=== PATIENT | male | born 1975 | race Caucasian/White ===

== ENCOUNTER 2017-03-24 19:18 | Emergency (ER) | payer MEDICAID ==
[~2017-03-24] VITALS: Ht 177.8 cm; Wt 67.5 kg
[2017-03-24 20:20] LABS: HEMATOCRIT 46.9 % (39.2-51.8); HEMOGLOBIN 15.9 g/dL (13.7-18.0)
[2017-03-24] MEDS ORDERED: CLINDAMYCIN PMX 900MG/50ML 50 ML IVPB ONE (20:30)
[2017-03-24] MEDS ORDERED: SODIUM CHLORIDE FLUSH 10ML SYR IVF ONE (20:30)
[2017-03-24] MEDS ORDERED: ONDANSETRON 2MG/ML, 2ML IVPush ONE (20:30)
[2017-03-24] MEDS ORDERED: SODIUM CHLORIDE 0.9% 1,000ML IVBOLUS ONE ×2 (20:30→21:00)
[2017-03-24 20:32] LABS: BLOOD UREA NITROGEN 9 mg/dL (7-18)
[2017-03-24] MEDS ORDERED: ONDANSETRON 2MG/ML, 2ML ONE (20:57)
[2017-03-24] MEDS ORDERED: CLINDAMYCIN PMX 900MG/50ML 50 ML ONE (20:57)
[2017-03-24] MEDS ORDERED: morphine SULFATE 10 MG/ML, 1ML ONE ×2 (20:57→22:32)
[2017-03-24] MEDS: MORPHINE SULFATE 4 MG/ML, 1ML IV PRN ×2 (21:04→22:35)
[2017-03-24 23:03] VITALS: BP 152/89
== END 2017-03-24 23:05 | disposition home or self-care (01) ==
LOC: ED 22:50
DX: L03.113 Cellulitis of right upper limb (principal); E11.65 Type 2 diabetes mellitus with hyperglycemia
CPT/HCPCS: 36415; 73130; 80048; 82962; 85025; 96361; 96365; 96375; 96376; 99285; J2405; J7030

== ENCOUNTER 2017-03-25 16:50 | Emergency (ER) | payer MEDICAID ==
[~2017-03-25] VITALS: Ht 177.8 cm; Wt 69.1 kg
[2017-03-25 17:23] LABS: HEMOGLOBIN 16.2 g/dL (13.7-18.0); WHITE BLOOD COUNT 10.8 x10^3/uL (3.4-10)
[2017-03-25] MEDS ORDERED: SODIUM CHLORIDE FLUSH 10ML SYR IVF ONE ×2 (17:30→18:00)
[2017-03-25 17:34] LABS: BLOOD UREA NITROGEN 6 mg/dL (7-18)
[2017-03-25 17:38] LABS: ASPARTATE AMINO TRANSFERASE 6 U/L (15-37)
[2017-03-25] MEDS ORDERED: SODIUM CHLORIDE 0.9% 1,000 ML IV ONE (17:40)
[2017-03-25] MEDS ORDERED: HYDROmorphone 1 MG/ML, 1ML ONE (17:49)
[2017-03-25] MEDS ORDERED: LIDOCAINE 1%, 20ML ONE (17:49)
[2017-03-25] MEDS ORDERED: ONDANSETRON 2MG/ML, 2ML ONE (17:49)
[2017-03-25] MEDS ORDERED: VANCOMYCIN 1,400 MG in SODIUM CHLORIDE 0.9% 250 ML IV ONE (18:00)
[2017-03-25] MEDS ORDERED: HYDROmorphone 1 MG/ML, 1ML IVPush PRN (18:00)
[2017-03-25] MEDS ORDERED: AMPICILLIN/SULBACTAM 3 GM in SODIUM CHLORIDE 0.9% 100 ML IVPB ONE (18:00)
[2017-03-25] MEDS ORDERED: LIDOCAINE 1%, 20ML SQ ONE (18:00)
[2017-03-25] MEDS ORDERED: ONDANSETRON 2MG/ML, 2ML IVPush ONE (18:00)
[2017-03-25] MEDS ORDERED: PHARMACOKINETIC CONSULTATION MC ONE (18:00)
[2017-03-25] MEDS ORDERED: VANCOMYCIN PER PHARMACY MC ONE (18:00)
[2017-03-25] MEDS ORDERED: BACITRACIN ZINC OINT 500U/GM, 0.9 GM ONE (19:59)
[2017-03-25] MEDS ORDERED: INSULIN REGULAR 100 UNITS/ML, 3ML VIAL SQ-INSULIN ONE (20:00)
[2017-03-25 20:17] VITALS: BP 138/78
== END 2017-03-25 20:52 | disposition home or self-care (01) ==
LOC: ED 19:45 → EDIP 19:55 → UNDOADMIN 19:55 → ED 20:52
DX: L03.113 Cellulitis of right upper limb (principal); L02.511 Cutaneous abscess of right hand; E11.65 Type 2 diabetes mellitus with hyperglycemia
CPT/HCPCS: 10060; 36415; 80053; 85025; 87070; 87075; 87077; 87205; 96365; 96366; 96367; 96375; 99285; J0295; J1170; J2405; J3370; J7030; J7050; 87186

== ENCOUNTER 2018-09-06 14:53 | Emergency (ER) | payer MEDICAID ==
[~2018-09-06] VITALS: Ht 177.8 cm; Wt 69.0 kg
[2018-09-06 14:54] VITALS: BP 149/99
[2018-09-06] MEDS ORDERED: METF500T PO (15:05)
--- NOTE | 2018-09-06 15:06 | NUR ---
Pt presents to ED with c/o "left foot and ankle pain and swelling after I slipped on the side step of my truck getting in when it was wet and raining." Pt denies LOC, syncope, head injury, cp, sob, n/v/d. CMS is intact. Pt ambulates independently with steady gait and balance. Call light within reach. All safety measures in place.
[2018-09-06] MEDS ORDERED: KETOROLAC 30 MG/1 ML ONE (15:35)
[2018-09-06] MEDS ORDERED: KETOROLAC 30 MG/1 ML IM ONE (16:00)
--- NOTE | 2018-09-06 16:04 | NUR ---
Patient/Caregiver given discharge instructions and they have confirmed that they understand the instructions. Patient ambulatory with steady gait with crutches.
== END 2018-09-06 16:05 | disposition home or self-care (01) ==
LOC: ED 15:19
DX: S82.62XA Displaced fracture of lateral malleolus of left fibula, initial encounter for closed fracture (principal); W01.0XXA Fall on same level from slipping, tripping and stumbling without subsequent striking against object, initial encounter; Y93.89 Activity, other specified; Y92.89 Other specified places as the place of occurrence of the external cause; Y99.8 Other external cause status
CPT/HCPCS: 29515; 73610; 73630; 96372; 99283; J1885

== ENCOUNTER 2018-12-18 10:14 | Inpatient (IN) | payer MEDICAID ==
[~2018-12-18] VITALS: Ht 172.7 cm; Wt 78.1 kg
[~2018-12-18 10:14] MED LIST: METF500T PO
--- NOTE | 2018-12-18 10:44 | NUR ---
PATIENT ARRIVES FROM HOME WITH DAUGHTER AND DAUGHTERS BF AND STATES HE IS HERE FOR 1. POSSIBLE BROKEN LEFT ANKLE FROM A FALL THAT OCCURRED AT HOME SEPTEMBER 06 THAT HE NEVER GOT TREATMENT FOR AND 2. UNCONTROLLED DIABETES ACCORDING TO HIM (HE DOESN'T CHECK BS OR EAT) AND 3. ALCOHOL. HE ARRIVES SLURRING SPEECH AND SMELLS OF ETOH, HAD A PINT TODAY. HE IS KIND AND MAKES JOKES, COOPERATIVE, TALKING TO FAMILY. IV IN PLACE, FSBS 550, GETTING LITER OF FLUID.
[2018-12-18] MEDS ORDERED: THIAMINE 100 MG in SODIUM CHLORIDE 0.9% 50 ML IVPB ONE (11:00)
[2018-12-18] MEDS ORDERED: SODIUM CHLORIDE 0.9% 1,000ML IVBOLUS ONE (11:00)
[2018-12-18 11:15] LABS: MEAN CORPUSCULAR HEMOGLOBIN 35.2 pg (27.5-34.5); MEAN CORPUSCULAR HGB CONC 33.8 g/dL (33.2-36.2); MEAN CORPUSCULAR VOLUME 104.1 fL (81-97); MEAN PLATELET VOLUME 9.1 fL (7.4-10.4); PLATELET COUNT 145 x10^3/uL (130-400); RED BLOOD COUNT 4.29 x10^6/uL (4.38-5.82); RED CELL DISTRIBUTION WIDTH 14.3 % (9.4-14.8)
[2018-12-18 11:20] LABS: PH, VENOUS 7.424 pH (7.320-7.420)
[2018-12-18 11:25] LABS: ALANINE AMINOTRANSFERASE 17 U/L (12-78); ALBUMIN 3.2 g/dL (3.4-5.0); ANION GAP 13 mmol/L (5-15); CALCIUM 8.5 mg/dL (8.5-10.1); CHLORIDE 91 mmol/L (98-107); CREATININE 1.18 mg/dL (0.7-1.3)
[2018-12-18 11:27] LABS: ALKALINE PHOSPHATASE 135 U/L (45-117); BILIRUBIN,TOTAL 0.4 mg/dL (0.2-1.0)
[2018-12-18 11:55] LABS: ACETONE, SERUM Trace (10mg/dL) mg/dL (Negative)
--- NOTE | 2018-12-18 12:03 | NUR ---
[facility] critical labs and glucose
--- NOTE | 2018-12-18 12:11 | NUR ---
PATIENT FELL ASLEEP AND OXYGEN DROPPED TO 80'S. WAVEFORM BAD, BUT WHEN FIXED PATIENT STILL HAD RA SAT 88%. PLACED ON TWO LITERS. WHEN HE IS AWAKE AND TALKING OXYGEN 98%, BUT WHEN HE FALLS ASLEEP IT DROPS. AOX4. NO S/S DISTRESS.
[2018-12-18 12:17] LABS: MD YES
[2018-12-18 12:18] LABS: <PLATELET ESTIMATE> ADEQUATE; <PLT MORPHOLOGY> NORMAL PLT MORPH; BAND#(MANUAL) 0.05 x10^3/uL; BANDS%(MANUAL) 1 % (0-7); EOS% (MANUAL) 2 % (1-7); LYMPH#(MANUAL) 3.59 x10^3/uL (1-3.4); LYMPHS% (MANUAL) 69 % (22-44); MONOS#(MANUAL) 0.47 x10^3/uL (0.3-2.7); MONOS% (MANUAL) 9 % (2-9); SEG#(MANUAL) 0.99 x10^3/uL (1.8-6.8); SEGS% (MANUAL) 19 % (42-75)
[2018-12-18] MEDS ORDERED: MAGNESIUM SULFATE 1 GM/2 ML IVPush ONE (12:30)
[2018-12-18] MEDS ORDERED: POTASSIUM CHLORIDE 40 MEQ in SODIUM CHLORIDE 0.9% 500 ML IV ONE (12:30)
--- NOTE | 2018-12-18 12:43 | NUR ---
PATIENT AWAITING ADMISSION/ORDERS/BED. IN BED ON MONITOR, VSS. DAUGHTER AT BEDSIDE. IV INFUSING.
--- NOTE | 2018-12-18 12:58 | NUR ---
requested mag sulfate and awaiting admission.
[2018-12-18] MEDS ORDERED: MAGNESIUM SULFATE 1 GM in SODIUM CHLORIDE 0.9% 100 ML IVPB ONE ×2 (13:00)
--- NOTE | 2018-12-18 13:11 | NUR ---
talking to pt
[2018-12-18] MEDS ORDERED: DOCUSATE 100 MG CAPSULE PO PRN (13:30)
[2018-12-18] MEDS ORDERED: GLUCAGON 1 MG IM PRN (13:30)
[2018-12-18] MEDS ORDERED: LORazepam 1MG TABLET PO PRN ×4 (13:30)
[2018-12-18] MEDS ORDERED: ACETAMINOPHEN 325 MG TABLET PO PRN (13:30)
[2018-12-18] MEDS ORDERED: hydrALAzine 20 MG/ML, 1ML IVPush PRN (13:30)
[2018-12-18] MEDS ORDERED: DEXTROSE 50%, 50ML SYRINGE IVPush PRN (13:30)
[2018-12-18] MEDS ORDERED: MAGNESIUM SULFATE/D5W 100 ML IVPB ONE (13:30)
[2018-12-18] MEDS ORDERED: DEXTROSE 4 GM TAB.CHEW PO PRN (13:30)
[2018-12-18] MEDS ORDERED: LORazepam 2 MG/ML, 1ML IV PRN ×5 (13:30)
--- NOTE | 2018-12-18 13:32 | NUR ---
patient report called to seth stoner. patient ready to go upstairs.
[2018-12-18 14:22] VITALS: BP 168/101
[2018-12-18] MEDS ORDERED: TBO-FILGRASTIM 300 MCG/0.5 ML SQ ONE (14:30)
[2018-12-18 14:35] LABS: HEMOGLOBIN A1C 11.6 % (4.2-6.3)
[2018-12-18] MEDS: DIAZEPAM 5 MG TABLET PO SCH ×2 (15:34→23:34)
[2018-12-18] MEDS: NICOTINE 21 MG/24 HR PATCH.TD24 TD SCH (15:34)
[2018-12-18] MEDS: HEPARIN 5,000 UNITS/ML, 1ML SQ SCH ×2 (15:34→23:34)
[2018-12-18] MEDS: GABAPENTIN 300 MG CAPSULE PO SCH ×2 (15:34→20:24)
[2018-12-18] MEDS: D5%-0.45NACL+KCL 20MEQ 1,000 ML IV SCH (15:35)
[2018-12-18] MEDS: INSULIN GLARGINE 100 UNITS/ML, PEN SQ-INSULIN SCH ×2 (16:03→20:24)
[2018-12-18] MEDS: INSULIN LISPRO 100 UNITS/ML, PEN SQ-INSULIN SCH ×2 (16:03→20:24)
[2018-12-18 16:24] LABS: MICROSCOPIC AUTO
[2018-12-18 16:25] LABS: CULTURE INDICATED? NO
[2018-12-18] MEDS: ONDANSETRON 2MG/ML, 2ML IVPush PRN (18:48)
[2018-12-18 20:18] VITALS: BP 132/72
[2018-12-18] MEDS: FAMOTIDINE 20 MG TABLET PO SCH (20:23)
[2018-12-18] MEDS: SODIUM CHLORIDE FLUSH 10ML SYR IVF SCH (20:25)
[2018-12-18] MEDS: THIAMINE 100 MG in SODIUM CHLORIDE 0.9% 50 ML IV SCH (21:33)
[2018-12-19 02:12] VITALS: BP 138/76
[2018-12-19] MEDS: D5%-0.45NACL+KCL 20MEQ 1,000 ML IV SCH (03:29)
[2018-12-19 05:44] LABS: ALANINE AMINOTRANSFERASE 15 U/L (12-78); ALBUMIN 2.8 g/dL (3.4-5.0); ANION GAP 6 mmol/L (5-15); CALCIUM 7.8 mg/dL (8.5-10.1); CHLORIDE 97 mmol/L (98-107); CREATININE 0.85 mg/dL (0.7-1.3)
[2018-12-19 05:46] LABS: ALKALINE PHOSPHATASE 99 U/L (45-117); BILIRUBIN,TOTAL 0.7 mg/dL (0.2-1.0); TOTAL PROTEIN 5.9 g/dL (6.4-8.2)
[2018-12-19 06:03] LABS: MEAN CORPUSCULAR HEMOGLOBIN 35.1 pg (27.5-34.5); MEAN CORPUSCULAR HGB CONC 33.7 g/dL (33.2-36.2); MEAN CORPUSCULAR VOLUME 104.4 fL (81-97); MEAN PLATELET VOLUME 9.2 fL (7.4-10.4); PLATELET COUNT 116 x10^3/uL (130-400); RED BLOOD COUNT 4.02 x10^6/uL (4.38-5.82); RED CELL DISTRIBUTION WIDTH 14.7 % (9.4-14.8)
[2018-12-19 06:32] LABS: MD YES
[2018-12-19 06:35] LABS: BAND#(MANUAL) 1.64 x10^3/uL; BANDS%(MANUAL) 12 % (0-7); LYMPH#(MANUAL) 2.47 x10^3/uL (1-3.4); LYMPHS% (MANUAL) 18 % (22-44); METAMYELOCYTES# (MANUAL) 0.14 x10^3/uL (0-0); METAMYELOCYTES% (MANUAL) 1 % (0-1); MONOS#(MANUAL) 0.55 x10^3/uL (0.3-2.7); MONOS% (MANUAL) 4 % (2-9); SEG#(MANUAL) 8.91 x10^3/uL (1.8-6.8); SEGS% (MANUAL) 65 % (42-75)
[2018-12-19 06:36] LABS: <PLATELET ESTIMATE> DECREASED; <PLT MORPHOLOGY> NORMAL PLT MORPH
[2018-12-19] MEDS ORDERED: MAGNESIUM SULFATE PMX 2GM/50ML 50 ML IV ONE (07:00)
[2018-12-19] MEDS: INSULIN LISPRO 100 UNITS/ML, PEN SQ-INSULIN SCH ×4 (07:00→21:43)
[2018-12-19] MEDS: POTASSIUM CHLORIDE 20 MEQ TAB.ER.PRT PO SCH ×2 (09:04→15:58)
[2018-12-19] MEDS: HEPARIN 5,000 UNITS/ML, 1ML SQ SCH ×2 (09:04→15:57)
[2018-12-19] MEDS: SODIUM CHLORIDE FLUSH 10ML SYR IVF SCH ×2 (09:04→21:44)
[2018-12-19] MEDS: DIAZEPAM 5 MG TABLET PO SCH ×3 (09:04→21:44)
[2018-12-19] MEDS: FAMOTIDINE 20 MG TABLET PO SCH ×2 (09:05→21:44)
[2018-12-19] MEDS: GABAPENTIN 300 MG CAPSULE PO SCH ×3 (09:05→21:44)
[2018-12-19] MEDS: MULTIVITAMIN 1 TABLET PO SCH (09:05)
[2018-12-19] MEDS: ONDANSETRON 2MG/ML, 2ML IVPush PRN (09:05)
[2018-12-19] MEDS: OXYcodone IR 5MG TABLET PO PRN ×2 (09:05→21:50)
[2018-12-19] MEDS: FOLIC ACID 1 MG TABLET PO SCH (09:05)
[2018-12-19] MEDS ORDERED: D5%-0.45NACL+KCL 40MEQ 1,000 ML IV SCH (10:00)
[2018-12-19] MEDS: INSULIN GLARGINE 100 UNITS/ML, PEN SQ-INSULIN SCH ×2 (11:27→21:43)
[2018-12-19 11:35] VITALS: BP 138/88
[2018-12-19 13:00] VITALS: BP 151/84
[2018-12-19] MEDS: NICOTINE 21 MG/24 HR PATCH.TD24 TD SCH (13:33)
[2018-12-19] MEDS: THIAMINE 100 MG in SODIUM CHLORIDE 0.9% 50 ML IV SCH (13:33)
[2018-12-19] MEDS ORDERED: OMNIPAQUE 350 MG/ML, 100ML BOTTLE ONE (15:52)
[2018-12-19 20:15] VITALS: BP 129/89
[2018-12-19] MEDS: TAMSULOSIN 0.4 MG CAP.ER.24H PO SCH (21:50)
[2018-12-20] MEDS: HEPARIN 5,000 UNITS/ML, 1ML SQ SCH ×4 (00:21→22:50)
[2018-12-20 01:10] VITALS: BP 124/81
[2018-12-20 05:08] LABS: MEAN CORPUSCULAR HEMOGLOBIN 34.1 pg (27.5-34.5); MEAN CORPUSCULAR HGB CONC 32.7 g/dL (33.2-36.2); MEAN CORPUSCULAR VOLUME 104.2 fL (81-97); MEAN PLATELET VOLUME 8.9 fL (7.4-10.4); PLATELET COUNT 93 x10^3/uL (130-400); RED BLOOD COUNT 3.78 x10^6/uL (4.38-5.82)
[2018-12-20 05:16] LABS: ALANINE AMINOTRANSFERASE 10 U/L (12-78); ALBUMIN 2.3 g/dL (3.4-5.0); ANION GAP 7 mmol/L (5-15); CALCIUM 7.5 mg/dL (8.5-10.1); CHLORIDE 106 mmol/L (98-107); CREATININE 0.79 mg/dL (0.7-1.3)
[2018-12-20 05:18] LABS: ALKALINE PHOSPHATASE 87 U/L (45-117); BILIRUBIN,TOTAL 0.4 mg/dL (0.2-1.0); TOTAL PROTEIN 5.4 g/dL (6.4-8.2)
[2018-12-20 05:26] LABS: MD YES
[2018-12-20 05:28] LABS: BAND#(MANUAL) 0.66 x10^3/uL; BANDS%(MANUAL) 6 % (0-7); EOS#(MANUAL) 0.22 x10^3/uL (0.0-0.4); EOS% (MANUAL) 2 % (1-7); LYMPH#(MANUAL) 2.31 x10^3/uL (1-3.4); LYMPHS% (MANUAL) 21 % (22-44); MONOS#(MANUAL) 0.55 x10^3/uL (0.3-2.7); MONOS% (MANUAL) 5 % (2-9); SEG#(MANUAL) 7.26 x10^3/uL (1.8-6.8); SEGS% (MANUAL) 66 % (42-75)
[2018-12-20 05:29] LABS: <PLATELET ESTIMATE> DECREASED; <PLT MORPHOLOGY> NORMAL PLT MORPH; ANISOCYTOSIS 1+
[2018-12-20 07:46] VITALS: BP 170/101
[2018-12-20] MEDS: INSULIN LISPRO 100 UNITS/ML, PEN SQ-INSULIN SCH ×4 (09:03→20:30)
[2018-12-20] MEDS: POTASSIUM CHLORIDE 20 MEQ TAB.ER.PRT PO SCH (09:04)
[2018-12-20] MEDS: MULTIVITAMIN 1 TABLET PO SCH (09:04)
[2018-12-20] MEDS: DIAZEPAM 5 MG TABLET PO SCH ×3 (09:04→22:49)
[2018-12-20] MEDS: SODIUM CHLORIDE FLUSH 10ML SYR IVF SCH ×2 (09:05→22:50)
[2018-12-20] MEDS: THIAMINE 100MG TABLET PO SCH (09:05)
[2018-12-20] MEDS: FAMOTIDINE 20 MG TABLET PO SCH ×2 (09:05→20:29)
[2018-12-20] MEDS: GABAPENTIN 300 MG CAPSULE PO SCH ×3 (09:05→20:28)
[2018-12-20] MEDS: INSULIN GLARGINE 100 UNITS/ML, PEN SQ-INSULIN SCH ×2 (09:06→20:30)
[2018-12-20] MEDS: OXYcodone IR 5MG TABLET PO PRN ×3 (09:06→22:50)
[2018-12-20] MEDS: FOLIC ACID 1 MG TABLET PO SCH (09:12)
[2018-12-20 10:05] VITALS: BP 155/99
[2018-12-20] MEDS: NICOTINE 21 MG/24 HR PATCH.TD24 TD SCH (13:28)
[2018-12-20 14:22] VITALS: BP 165/108
[2018-12-20 20:00] VITALS: BP 152/104
[2018-12-20] MEDS: TAMSULOSIN 0.4 MG CAP.ER.24H PO SCH (22:49)
[2018-12-21 02:00] VITALS: BP 159/109
[2018-12-21] MEDS: OXYcodone IR 5MG TABLET PO PRN ×2 (03:12→08:52)
[2018-12-21 04:20] VITALS: BP 138/84
[2018-12-21 06:43] LABS: BASOPHILS # (AUTO) 0.02 x10^3/uL (0-0.1); BASOPHILS % (AUTO) 0 % (0-1); EOSINOPHILS # (AUTO) 0.17 x10^3/uL (0-0.4); EOSINOPHILS % (AUTO) 3 % (1-7); LYMPHOCYTES # (AUTO) 2.16 x10^3/uL (1-3.4); LYMPHOCYTES % (AUTO) 32 % (22-44); MD NO; MEAN CORPUSCULAR HEMOGLOBIN 34.2 pg (27.5-34.5); MEAN CORPUSCULAR HGB CONC 32.9 g/dL (33.2-36.2); MEAN CORPUSCULAR VOLUME 103.9 fL (81-97); MONOCYTES # (AUTO) 0.56 x10^3/uL (0.2-0.8); MONOCYTES % (AUTO) 8 % (2-9); NEUTROPHILS # (AUTO) 3.89 x10^3/uL (1.8-6.8); NEUTROPHILS % (AUTO) 57 % (42-75); PLATELET COUNT 100 x10^3/uL (130-400); RED BLOOD COUNT 3.62 x10^6/uL (4.38-5.82); RED CELL DISTRIBUTION WIDTH 14.9 % (9.4-14.8)
[2018-12-21 08:03] VITALS: BP 156/106
[2018-12-21] MEDS ORDERED: SITA100T PO (08:04)
[2018-12-21] MEDS ORDERED: METF10007 PO (08:04)
[2018-12-21] MEDS: INSULIN LISPRO 100 UNITS/ML, PEN SQ-INSULIN SCH (08:34)
[2018-12-21] MEDS: TAMSULOSIN 0.4 MG CAP.ER.24H PO SCH (08:52)
[2018-12-21] MEDS: GABAPENTIN 300 MG CAPSULE PO SCH (08:52)
[2018-12-21] MEDS: THIAMINE 100MG TABLET PO SCH (08:52)
[2018-12-21] MEDS: FAMOTIDINE 20 MG TABLET PO SCH (08:52)
[2018-12-21] MEDS: INSULIN GLARGINE 100 UNITS/ML, PEN SQ-INSULIN SCH (08:52)
[2018-12-21] MEDS: MULTIVITAMIN 1 TABLET PO SCH (08:52)
[2018-12-21] MEDS: SODIUM CHLORIDE FLUSH 10ML SYR IVF SCH (08:53)
[2018-12-21] MEDS: DIAZEPAM 5 MG TABLET PO SCH (08:53)
[2018-12-21] MEDS: FOLIC ACID 1 MG TABLET PO SCH (08:53)
[2018-12-21] MEDS: HEPARIN 5,000 UNITS/ML, 1ML SQ SCH (08:53)
[2018-12-21 10:01] VITALS: BP 147/93
== END 2018-12-21 12:04 | disposition home or self-care (01) | DRG 897 ==
LOC: ED 10:41 → EDIP 12:27 → 4WST 14:19
PROVIDERS: ADMIT Hospitalist; ATTEND Hospitalist
DX: F10.229 Alcohol dependence with intoxication, unspecified (principal); E44.0 Moderate protein-calorie malnutrition; D75.89 Other specified diseases of blood and blood-forming organs; E11.40 Type 2 diabetes mellitus with diabetic neuropathy, unspecified; E11.65 Type 2 diabetes mellitus with hyperglycemia; Z68.26 Body mass index [BMI] 26.0-26.9, adult; E87.6 Hypokalemia; F10.239 Alcohol dependence with withdrawal, unspecified; F17.200 Nicotine dependence, unspecified, uncomplicated; Z80.7 Family history of other malignant neoplasms of lymphoid, hematopoietic and related tissues; Z82.49 Family history of ischemic heart disease and other diseases of the circulatory system; Z91.14 Patient's other noncompliance with medication regimen
CPT/HCPCS: 36415; 71045; 74177; 80053; 80074; 80307; 81001; 82010; 82140; 82607; 82803; 82962; 83036; 83690; 83735; 84100; 84132; 84443; 85025; 96365; 96366; 96368; G0378; J1644; J2405; J3411; J3475; J3480; Q9967; J0360; J1447; J1815; J7030; J7040

== ENCOUNTER 2019-07-11 10:37 | Inpatient (IN) | payer MEDICAID ==
[~2019-07-11] VITALS: Ht 177.8 cm; Wt 78.4 kg
[~2019-07-11 10:37] MED LIST changes: +ENAL5TAB PO; +FOLI-17 PO; +INSU100I11 SQ-INSULIN; +INSU100I13 SQ-INSULIN; +METF10007 PO; +NYST1000 PO; +PANT40TA5 PO; +POTA20TA6 PO; +SITA100T PO; +SUCR1ORA5 PO
[2019-07-11] MEDS ORDERED: SODIUM CHLORIDE 0.9% 1,000ML IVBOLUS ONE ×2 (11:00→11:30)
[2019-07-11] MEDS ORDERED: ONDANSETRON 2MG/ML, 2ML IVPush ONE (11:30)
[2019-07-11 11:33] LABS: BASOPHILS # (AUTO) 0.05 x10^3/uL (0-0.1); BASOPHILS % (AUTO) 1 % (0-1); EOSINOPHILS # (AUTO) 0.04 x10^3/uL (0-0.4); EOSINOPHILS % (AUTO) 0 % (1-7); LYMPHOCYTES # (AUTO) 1.51 x10^3/uL (1-3.4); LYMPHOCYTES % (AUTO) 16 % (22-44); MD NO; MEAN CORPUSCULAR HEMOGLOBIN 32.1 pg (27.5-34.5); MEAN CORPUSCULAR HGB CONC 33.4 g/dL (33.2-36.2); MEAN CORPUSCULAR VOLUME 96.1 fL (81-97); MEAN PLATELET VOLUME 10.7 fL (7.4-10.4); MONOCYTES # (AUTO) 0.95 x10^3/uL (0.2-0.8); MONOCYTES % (AUTO) 10 % (2-9); NEUTROPHILS # (AUTO) 7.04 x10^3/uL (1.8-6.8); NEUTROPHILS % (AUTO) 73 % (42-75); PLATELET COUNT 213 x10^3/uL (130-400); RED BLOOD COUNT 5.02 x10^6/uL (4.38-5.82); RED CELL DISTRIBUTION WIDTH 14.5 % (9.4-14.8)
[2019-07-11 11:35] LABS: PH, VENOUS 7.357 pH (7.320-7.420)
[2019-07-11 11:45] LABS: ALANINE AMINOTRANSFERASE 9 U/L (12-78); ALBUMIN 3.9 g/dL (3.4-5.0); ANION GAP 22 mmol/L (5-15); CALCIUM 10.8 mg/dL (8.5-10.1); CHLORIDE 88 mmol/L (98-107)
[2019-07-11 11:48] LABS: ALKALINE PHOSPHATASE 105 U/L (45-117); CREATININE 2.07 mg/dL (0.7-1.3); TOTAL PROTEIN 8.6 g/dL (6.4-8.2)
[2019-07-11] MEDS ORDERED: ONDANSETRON 2MG/ML, 2ML ONE (11:49)
[2019-07-11] MEDS ORDERED: LORazepam 2 MG/ML, 1ML ONE (12:13)
[2019-07-11 12:19] LABS: ACETONE, SERUM Large (80mg/dL) (Negative)
--- NOTE | 2019-07-11 12:20 | NUR ---
2ND LITER NS BOLUS INFUSING. ERP NOTIFIED THAT PT STILL SHAKING AND BP ELEVATED. PER DAUGHTER, PT LAST DRANK A COUPLE DAYS AGO. Addendum: 07/11/19 at 1221 by HBENSON WILL MEDICATE PT WITH ATIVAN PER ORDERS.
[2019-07-11] MEDS ORDERED: LORazepam 2 MG/ML, 1ML IVPush ONE ×2 (12:30→13:00)
[2019-07-11] MEDS ORDERED: SODIUM CHLORIDE 0.9% 1,000 ML IV SCH (12:30)
[2019-07-11] MEDS ORDERED: DIAZEPAM 5 MG/ML, 2ML IV ONE (13:00)
[2019-07-11] MEDS ORDERED: LABETALOL 5 MG/ML SYR. (IV ONLY) IVPush ONE (13:01)
--- NOTE | 2019-07-11 13:55 | NUR ---
ERP UPDATED ON PT VS AND FSBG. VS AND SHAKING IMPROVED AFTER 2L BOLUS AND IV ATIVAN. MAINTENANCE FLUIDS INFUSING NOW. PT UNDERSTANDS PLAN FOR ADMISSION.
[2019-07-11] MEDS ORDERED: LORazepam 0.5MG TABLET PO PRN (14:00)
[2019-07-11] MEDS ORDERED: ACETAMINOPHEN 325 MG TABLET PO PRN (14:00)
[2019-07-11] MEDS ORDERED: GABAPENTIN 300 MG CAPSULE PO PRN (14:00)
[2019-07-11] MEDS ORDERED: DEXTROSE 4 GM TAB.CHEW PO PRN (14:00)
[2019-07-11] MEDS ORDERED: LORazepam 1MG TABLET PO PRN ×4 (14:00)
[2019-07-11] MEDS ORDERED: hydrALAzine 20 MG/ML, 1ML IVPush PRN (14:00)
[2019-07-11] MEDS ORDERED: LORazepam 2 MG/ML, 1ML IV PRN ×5 (14:00)
[2019-07-11] MEDS ORDERED: THIAMINE 200 MG in DEXTROSE 5% 50 ML IVPB ONE (14:00)
[2019-07-11] MEDS ORDERED: morphine SULFATE 10 MG/ML, 1ML IVPush PRN (14:00)
[2019-07-11] MEDS ORDERED: GLUCAGON 1 MG IM PRN (14:00)
[2019-07-11] MEDS ORDERED: NITROGLYCERIN 0.4 MG/SPRAY SL PRN (14:00)
[2019-07-11] MEDS ORDERED: DEXTROSE 50%, 50ML SYRINGE IVPush PRN (14:00)
[2019-07-11] MEDS ORDERED: FOLIC ACID 5 MG/ML IM ONE (14:00)
[2019-07-11] MEDS ORDERED: ONDANSETRON ODT 4 MG PO PRN (14:00)
[2019-07-11] MEDS ORDERED: NITROGLYCERIN 0.4 MG BOTTLE (25 TABS) SL PRN (14:00)
[2019-07-11 14:49] VITALS: BP 155/101
[2019-07-11] MEDS: OXYcodone IR 5MG TABLET PO PRN ×2 (15:27→21:12)
[2019-07-11] MEDS: INSULIN LISPRO 100 UNITS/ML, PEN SQ-INSULIN SCH ×2 (16:00→21:00)
[2019-07-11 17:13] LABS: ANION GAP 12 mmol/L (5-15); CALCIUM 8.6 mg/dL (8.5-10.1); CHLORIDE 102 mmol/L (98-107); CREATININE 1.51 mg/dL (0.7-1.3)
[2019-07-11 17:18] LABS: TROPONIN I < 0.015 ng/mL (0.000-0.045)
[2019-07-11] MEDS: SUCRALFATE 1 GM/10 ML UDC PO SCH ×2 (17:48→21:11)
[2019-07-11] MEDS: SODIUM CHLORIDE 0.9% 1,000 ML IV SCH (18:03)
[2019-07-11 19:55] VITALS: BP 124/83
[2019-07-11] MEDS: HEPARIN 5,000 UNITS/ML, 1ML SQ SCH (20:50)
[2019-07-11] MEDS: SODIUM CHLORIDE FLUSH 10ML SYR IVF SCH (20:51)
[2019-07-11] MEDS: INSULIN GLARGINE 100 UNITS/ML, PEN SQ-INSULIN SCH (21:00)
[2019-07-12 00:54] LABS: TROPONIN I < 0.015 ng/mL (0.000-0.045)
[2019-07-12] MEDS: SODIUM CHLORIDE 0.9% 1,000 ML IV SCH ×4 (01:27→22:18)
[2019-07-12] MEDS: NICOTINE 14MG/24 HR PATCH.TD24 TD SCH (01:31)
[2019-07-12 02:12] VITALS: BP 132/81
[2019-07-12] MEDS: HEPARIN 5,000 UNITS/ML, 1ML SQ SCH ×3 (05:11→20:29)
[2019-07-12] MEDS: PANTOPROZOLE 40MG TABLET PO SCH (05:12)
[2019-07-12] MEDS: OXYcodone IR 5MG TABLET PO PRN ×2 (05:15→20:44)
[2019-07-12 05:29] LABS: BASOPHILS # (AUTO) 0.03 x10^3/uL (0-0.1); BASOPHILS % (AUTO) 0 % (0-1); EOSINOPHILS # (AUTO) 0.15 x10^3/uL (0-0.4); EOSINOPHILS % (AUTO) 2 % (1-7); LYMPHOCYTES # (AUTO) 2.33 x10^3/uL (1-3.4); LYMPHOCYTES % (AUTO) 34 % (22-44); MD NO; MEAN CORPUSCULAR HGB CONC 33.4 g/dL (33.2-36.2); MEAN CORPUSCULAR VOLUME 95.7 fL (81-97); MEAN PLATELET VOLUME 10.1 fL (7.4-10.4); MONOCYTES % (AUTO) 10 % (2-9); NEUTROPHILS # (AUTO) 3.71 x10^3/uL (1.8-6.8); NEUTROPHILS % (AUTO) 54 % (42-75); PLATELET COUNT 197 x10^3/uL (130-400); RED BLOOD COUNT 4.01 x10^6/uL (4.38-5.82); RED CELL DISTRIBUTION WIDTH 14.6 % (9.4-14.8)
[2019-07-12 05:38] LABS: CALCIUM 8.3 mg/dL (8.5-10.1); CHLORIDE 107 mmol/L (98-107)
[2019-07-12 05:43] LABS: ALANINE AMINOTRANSFERASE 7 U/L (12-78); ALBUMIN 2.9 g/dL (3.4-5.0); ALKALINE PHOSPHATASE 72 U/L (45-117); ANION GAP 9 mmol/L (5-15); BILIRUBIN,TOTAL 0.7 mg/dL (0.2-1.0); CREATININE 1.37 mg/dL (0.7-1.3); TOTAL PROTEIN 6.3 g/dL (6.4-8.2)
[2019-07-12 07:36] VITALS: BP 134/78
[2019-07-12] MEDS: FOLIC ACID 1 MG TABLET PO SCH (08:33)
[2019-07-12] MEDS: SODIUM CHLORIDE FLUSH 10ML SYR IVF SCH ×2 (08:33→20:30)
[2019-07-12] MEDS: INSULIN LISPRO 100 UNITS/ML, PEN SQ-INSULIN SCH ×4 (08:33→20:35)
[2019-07-12] MEDS: NEUTRA PHOS K 250 MG TABLET PO SCH ×2 (08:33→20:29)
[2019-07-12] MEDS: SUCRALFATE 1 GM/10 ML UDC PO SCH ×4 (08:33→20:29)
[2019-07-12] MEDS ORDERED: OMNIPAQUE 350 MG/ML, 100ML BOTTLE ONE (11:45)
[2019-07-12 12:32] LABS: MICROSCOPIC AUTO
[2019-07-12 12:39] LABS: CULTURE INDICATED? NO
[2019-07-12 13:04] VITALS: BP 150/93
[2019-07-12 19:59] VITALS: BP 167/105
[2019-07-12 20:28] VITALS: BP 172/102
[2019-07-12] MEDS: INSULIN GLARGINE 100 UNITS/ML, PEN SQ-INSULIN SCH (20:44)
[2019-07-12 22:21] VITALS: BP 156/99
[2019-07-13 01:14] VITALS: BP 160/95
[2019-07-13] MEDS: OXYcodone IR 5MG TABLET PO PRN (01:22)
[2019-07-13] MEDS: NICOTINE 14MG/24 HR PATCH.TD24 TD SCH (01:23)
[2019-07-13] MEDS: PANTOPROZOLE 40MG TABLET PO SCH (05:13)
[2019-07-13] MEDS: SODIUM CHLORIDE 0.9% 1,000 ML IV SCH (05:13)
[2019-07-13] MEDS: HEPARIN 5,000 UNITS/ML, 1ML SQ SCH (05:13)
[2019-07-13 06:35] LABS: BASOPHILS # (AUTO) 0.04 x10^3/uL (0-0.1); BASOPHILS % (AUTO) 1 % (0-1); EOSINOPHILS # (AUTO) 0.16 x10^3/uL (0-0.4); EOSINOPHILS % (AUTO) 3 % (1-7); LYMPHOCYTES # (AUTO) 2.73 x10^3/uL (1-3.4); LYMPHOCYTES % (AUTO) 45 % (22-44); MD NO; MEAN CORPUSCULAR HEMOGLOBIN 32.2 pg (27.5-34.5); MEAN CORPUSCULAR HGB CONC 33.2 g/dL (33.2-36.2); MEAN CORPUSCULAR VOLUME 96.8 fL (81-97); MEAN PLATELET VOLUME 10.1 fL (7.4-10.4); MONOCYTES # (AUTO) 0.68 x10^3/uL (0.2-0.8); MONOCYTES % (AUTO) 11 % (2-9); NEUTROPHILS # (AUTO) 2.46 x10^3/uL (1.8-6.8); NEUTROPHILS % (AUTO) 41 % (42-75); PLATELET COUNT 181 x10^3/uL (130-400); RED BLOOD COUNT 3.72 x10^6/uL (4.38-5.82); RED CELL DISTRIBUTION WIDTH 14.3 % (9.4-14.8)
[2019-07-13 06:44] LABS: ANION GAP 9 mmol/L (5-15); CALCIUM 7.7 mg/dL (8.5-10.1); CHLORIDE 109 mmol/L (98-107); CREATININE 0.95 mg/dL (0.7-1.3)
[2019-07-13] MEDS: INSULIN LISPRO 100 UNITS/ML, PEN SQ-INSULIN SCH ×2 (07:00→10:58)
[2019-07-13 07:44] VITALS: BP 120/80
[2019-07-13] MEDS: FOLIC ACID 1 MG TABLET PO SCH (07:56)
[2019-07-13] MEDS: SUCRALFATE 1 GM/10 ML UDC PO SCH ×2 (07:56→10:58)
[2019-07-13] MEDS: SODIUM CHLORIDE FLUSH 10ML SYR IVF SCH (07:57)
[2019-07-13] MEDS ORDERED: MAGNESIUM SULFATE PMX 2GM/50ML 50 ML IV ONE (08:00)
[2019-07-13] MEDS ORDERED: POTASSIUM CHLORIDE 20 MEQ PACKET PO ONE (08:00)
[2019-07-13] MEDS ORDERED: INSU100I13 SQ-INSULIN (08:05)
[2019-07-13] MEDS ORDERED: INSU100I11 SQ-INSULIN (08:05)
== END 2019-07-13 11:45 | disposition home or self-care (01) | DRG 637 ==
LOC: SUATTDRO 13:26 → ED 14:06 → EDIP 15:02 → 4EST 15:49 → DCLOUNGE 07-13 11:42
PROVIDERS: ADMIT Hospitalist; ATTEND Hospitalist
DX: E11.10 Type 2 diabetes mellitus with ketoacidosis without coma (principal); N17.0 Acute kidney failure with tubular necrosis; F10.239 Alcohol dependence with withdrawal, unspecified; E87.1 Hypo-osmolality and hyponatremia; E83.39 Other disorders of phosphorus metabolism; E83.52 Hypercalcemia; Y90.9 Presence of alcohol in blood, level not specified; F17.210 Nicotine dependence, cigarettes, uncomplicated; I10 Essential (primary) hypertension; K21.0 Gastro-esophageal reflux disease with esophagitis; Z79.4 Long term (current) use of insulin; Z83.3 Family history of diabetes mellitus; Z91.14 Patient's other noncompliance with medication regimen
CPT/HCPCS: 36415; 74177; 80048; 80053; 80307; 81001; 82010; 82803; 82962; 83690; 83735; 83930; 84100; 84484; 85025; 87806; 93005; 96361; 96374; 96375; 96376; G0378; J1644; J2405; J3411; Q9967; G0475; J1815; J2060; J3475; J7030

== ENCOUNTER 2019-08-12 18:26 | Inpatient (IN) | payer MEDICAID ==
[~2019-08-12] VITALS: Ht 177.8 cm; Wt 72.2 kg
[2019-08-12 19:24] LABS: BASOPHILS # (AUTO) 0.02 x10^3/uL (0-0.1); BASOPHILS % (AUTO) 0 % (0-1); EOSINOPHILS # (AUTO) 0.01 x10^3/uL (0-0.4); EOSINOPHILS % (AUTO) 0 % (1-7); LYMPHOCYTES # (AUTO) 1.23 x10^3/uL (1-3.4); LYMPHOCYTES % (AUTO) 13 % (22-44); MD NO; MEAN CORPUSCULAR HEMOGLOBIN 33.5 pg (27.5-34.5); MEAN CORPUSCULAR HGB CONC 33.5 g/dL (33.2-36.2); MEAN CORPUSCULAR VOLUME 99.9 fL (81-97); MEAN PLATELET VOLUME 10.4 fL (7.4-10.4); MONOCYTES # (AUTO) 0.96 x10^3/uL (0.2-0.8); MONOCYTES % (AUTO) 10 % (2-9); NEUTROPHILS # (AUTO) 7.29 x10^3/uL (1.8-6.8); NEUTROPHILS % (AUTO) 77 % (42-75); PLATELET COUNT 218 x10^3/uL (130-400); RED BLOOD COUNT 4.96 x10^6/uL (4.38-5.82); RED CELL DISTRIBUTION WIDTH 16.5 % (9.4-14.8)
[2019-08-12] MEDS ORDERED: SODIUM CHLORIDE FLUSH 10ML SYR IVF ONE (19:30)
[2019-08-12 19:37] LABS: ALBUMIN 4.1 g/dL (3.4-5.0); ANION GAP 23 mmol/L (5-15); CALCIUM 9.8 mg/dL (8.5-10.1); CHLORIDE 84 mmol/L (98-107)
[2019-08-12 19:40] LABS: ALANINE AMINOTRANSFERASE 14 U/L (12-78); ALKALINE PHOSPHATASE 96 U/L (45-117); CREATININE 1.85 mg/dL (0.7-1.3); TOTAL PROTEIN 8.9 g/dL (6.4-8.2)
--- NOTE | 2019-08-12 19:42 | NUR ---
A&OX4, RESP EVEN & UNLABORED, SPEECH CLEAR. C/O DIARRHEA (MULTIPLE LIQUID STOOLS) X 3 DAYS - NO MEDS TAKEN FOR SX. +NAUSEA. LAST FOOD INTAKE: SATURDAY NIGHT. PT NOT WEARING HIS DENTURES; STATES "THEY GOT LOST".
[2019-08-12 19:43] LABS: ACETONE, SERUM Large (80mg/dL) (Negative)
--- NOTE | 2019-08-12 19:51 | NUR ---
PT INFORMED OF NEED FOR URINE SPECIMEN. REPLIED "THAT'LL BE DIFFICULT BECAUSE I'M SO DEHYDRATED". REPORTS HE DRANK WATER TODAY, BUT WAS UNABLE TO HOLD IT DOWN.
[2019-08-12] MEDS ORDERED: INSULIN REGULAR 100 UNITS/ML, 3ML VIAL SQ-INSULIN SCH (20:00)
[2019-08-12] MEDS ORDERED: SODIUM CHLORIDE 0.9% 1,000 ML IV ONE (20:00)
[2019-08-12] MEDS ORDERED: SODIUM CHLORIDE 0.9% 1,000ML IVBOLUS ONE (20:00)
--- NOTE | 2019-08-12 20:11 | NUR ---
PIV INITIATED; 20G LT FA. NS BOLUS HUNG. SIDE RAIL UP X1, CALL LIGHT W/IN REACH.
[2019-08-12] MEDS ORDERED: INSULIN LISPRO SINGLE DOSE, ER SQ-INSULIN ONE (20:14)
--- NOTE | 2019-08-12 20:19 | NUR ---
PT REPORT TO MARILYN JOYA RN. PT CARE TRANSFERRED.
[2019-08-12] MEDS ORDERED: INSULIN SINGLE DOSE, ER ONE ×2 (20:21→20:28)
[2019-08-12] MEDS ORDERED: ONDANSETRON 2MG/ML, 2ML ONE (21:57)
[2019-08-12] MEDS ORDERED: ONDANSETRON 2MG/ML, 2ML IVPush ONE (22:00)
--- NOTE | 2019-08-12 22:02 | NUR ---
VOMIT ON FLOOR NEXT TO BED. NS BOLUS INFUSED. URINAL GIVEN TO PT WITH REMINDER OF NEED FOR URINE SAMPLE
--- NOTE | 2019-08-12 22:25 | NUR ---
DR GAN (R) BS FOR EXAM
--- NOTE | 2019-08-12 22:39 | NUR ---
PT REPORT TO NORMA GREWAL FOR ROOM 374
[2019-08-12 22:41] LABS: MICROSCOPIC AUTO
[2019-08-12 22:43] LABS: CULTURE INDICATED? NO
[2019-08-12 23:00] VITALS: BP 139/84
[2019-08-12] MEDS ORDERED: SODIUM CHLORIDE 0.9% 1,000 ML IV SCH (23:06)
[2019-08-12] MEDS ORDERED: DEXTROSE 50%, 50ML SYRINGE IVPush PRN (23:30)
[2019-08-12] MEDS ORDERED: DEXTROSE 4 GM TAB.CHEW PO PRN (23:30)
[2019-08-12] MEDS ORDERED: GLUCAGON 1 MG IM PRN (23:30)
[2019-08-13] MEDS: NICOTINE 14MG/24 HR PATCH.TD24 TD SCH (00:14)
[2019-08-13] MEDS: SODIUM CHLORIDE FLUSH 10ML SYR IVF SCH ×3 (00:16→21:00)
[2019-08-13] MEDS: HEPARIN 5,000 UNITS/ML, 1ML SQ SCH ×4 (00:17→23:30)
[2019-08-13] MEDS: ONDANSETRON 2MG/ML, 2ML IVPush PRN ×3 (00:22→16:42)
[2019-08-13] MEDS: INSULIN GLARGINE 100 UNITS/ML, PEN SQ-INSULIN SCH ×2 (00:51→22:02)
[2019-08-13 00:52] LABS: MICROSCOPIC AUTO
[2019-08-13 00:54] LABS: CULTURE INDICATED? NO
[2019-08-13 01:10] VITALS: BP 134/78
[2019-08-13 02:04] LABS: ANION GAP 12 mmol/L (5-15); CALCIUM 9.2 mg/dL (8.5-10.1); CHLORIDE 97 mmol/L (98-107); CREATININE 1.65 mg/dL (0.7-1.3)
[2019-08-13] MEDS ORDERED: NS + 40MEQ KCL 1,000 ML IV SCH (03:00)
[2019-08-13] MEDS: POTASSIUM CHLORIDE 40 MEQ in SODIUM CHLORIDE 0.45% 1,000 ML IV SCH ×3 (03:36→20:00)
[2019-08-13 03:40] VITALS: BP 121/82
[2019-08-13] MEDS ORDERED: FLU VACC QS2019-20 36MOS UP/PF 0.5 ML IM-VACC ONE (05:30)
[2019-08-13 06:56] LABS: MEAN CORPUSCULAR HEMOGLOBIN 33.5 pg (27.5-34.5); MEAN CORPUSCULAR HGB CONC 33.7 g/dL (33.2-36.2); MEAN CORPUSCULAR VOLUME 99.2 fL (81-97); PLATELET COUNT 213 x10^3/uL (130-400); RED BLOOD COUNT 4.61 x10^6/uL (4.38-5.82); RED CELL DISTRIBUTION WIDTH 15.8 % (9.4-14.8)
[2019-08-13 07:03] LABS: ALBUMIN 3.5 g/dL (3.4-5.0); ANION GAP 12 mmol/L (5-15); CALCIUM 8.9 mg/dL (8.5-10.1); CHLORIDE 99 mmol/L (98-107)
[2019-08-13 07:07] LABS: BASOPHILS # (AUTO) 0.02 x10^3/uL (0-0.1); BASOPHILS % (AUTO) 0 % (0-1); EOSINOPHILS # (AUTO) 0.07 x10^3/uL (0-0.4); EOSINOPHILS % (AUTO) 1 % (1-7); LYMPHOCYTES % (AUTO) 21 % (22-44); MD NO; MONOCYTES # (AUTO) 1.57 x10^3/uL (0.2-0.8); MONOCYTES % (AUTO) 16 % (2-9); NEUTROPHILS # (AUTO) 6.06 x10^3/uL (1.8-6.8); NEUTROPHILS % (AUTO) 62 % (42-75)
[2019-08-13 07:09] LABS: ALANINE AMINOTRANSFERASE 11 U/L (12-78); ALKALINE PHOSPHATASE 81 U/L (45-117); BILIRUBIN,TOTAL 1.5 mg/dL (0.2-1.0); CREATININE 1.58 mg/dL (0.7-1.3); TOTAL PROTEIN 7.4 g/dL (6.4-8.2)
[2019-08-13 08:23] VITALS: BP 160/94
[2019-08-13] MEDS ORDERED: POTASSIUM CHLORIDE 20 MEQ in SODIUM CHLORIDE 0.9% 250 ML IV ONE (09:00)
[2019-08-13] MEDS: INSULIN LISPRO 100 UNITS/ML, PEN SQ-INSULIN SCH ×4 (10:07→22:02)
[2019-08-13 11:23] LABS: RAPID INFLUENZA A Negative (Negative); RAPID INFLUENZA B Negative (Negative)
[2019-08-13 12:56] LABS: ALBUMIN 3.4 g/dL (3.4-5.0); ANION GAP 8 mmol/L (5-15); CALCIUM 8.7 mg/dL (8.5-10.1); CHLORIDE 102 mmol/L (98-107)
[2019-08-13 13:01] LABS: ALANINE AMINOTRANSFERASE 12 U/L (12-78); ALKALINE PHOSPHATASE 73 U/L (45-117); BILIRUBIN,TOTAL 1.5 mg/dL (0.2-1.0); CREATININE 1.46 mg/dL (0.7-1.3); TOTAL PROTEIN 7.1 g/dL (6.4-8.2)
[2019-08-13 13:48] VITALS: BP 135/80
[2019-08-13] MEDS ORDERED: POTASSIUM PHOS 4.4 MEQ/ML IV ONE (15:00)
[2019-08-13] MEDS ORDERED: POTASSIUM PHOSPHATE 44 MEQ in SODIUM CHLORIDE 0.9% 500 ML IV ONE (16:00)
[2019-08-13 20:00] VITALS: BP 140/85
[2019-08-13] MEDS ORDERED: ALUMINUM/MAG/SIMETHICONE 30 ML UDC PO PRN (21:00)
[2019-08-14] MEDS: NICOTINE 14MG/24 HR PATCH.TD24 TD SCH ×2 (00:13→22:40)
[2019-08-14 01:15] VITALS: BP 128/75
[2019-08-14] MEDS: POTASSIUM CHLORIDE 40 MEQ in SODIUM CHLORIDE 0.45% 1,000 ML IV SCH (02:56)
[2019-08-14 06:19] LABS: BASOPHILS # (AUTO) 0.03 x10^3/uL (0-0.1); BASOPHILS % (AUTO) 1 % (0-1); EOSINOPHILS % (AUTO) 2 % (1-7); LYMPHOCYTES # (AUTO) 2.11 x10^3/uL (1-3.4); LYMPHOCYTES % (AUTO) 33 % (22-44); MD NO; MEAN CORPUSCULAR HEMOGLOBIN 33.5 pg (27.5-34.5); MEAN CORPUSCULAR HGB CONC 33.3 g/dL (33.2-36.2); MEAN CORPUSCULAR VOLUME 100.7 fL (81-97); MEAN PLATELET VOLUME 9.9 fL (7.4-10.4); MONOCYTES # (AUTO) 0.92 x10^3/uL (0.2-0.8); MONOCYTES % (AUTO) 15 % (2-9); NEUTROPHILS # (AUTO) 3.17 x10^3/uL (1.8-6.8); NEUTROPHILS % (AUTO) 50 % (42-75); PLATELET COUNT 236 x10^3/uL (130-400); RED BLOOD COUNT 4.38 x10^6/uL (4.38-5.82)
[2019-08-14 06:26] LABS: CHLORIDE 102 mmol/L (98-107)
[2019-08-14 06:30] LABS: ALANINE AMINOTRANSFERASE 11 U/L (12-78); ALBUMIN 3.4 g/dL (3.4-5.0); ALKALINE PHOSPHATASE 70 U/L (45-117); ANION GAP 8 mmol/L (5-15); BILIRUBIN,TOTAL 1.1 mg/dL (0.2-1.0); CALCIUM 8.8 mg/dL (8.5-10.1); CREATININE 1.17 mg/dL (0.7-1.3); TOTAL PROTEIN 7.2 g/dL (6.4-8.2)
[2019-08-14] MEDS: INSULIN LISPRO 100 UNITS/ML, PEN SQ-INSULIN SCH ×4 (07:00→21:43)
[2019-08-14 07:18] VITALS: BP 159/101
[2019-08-14] MEDS: SODIUM CHLORIDE FLUSH 10ML SYR IVF SCH ×2 (07:34→21:00)
[2019-08-14] MEDS: LABETALOL 5MG/ML, 20ML IVPush PRN (07:50)
[2019-08-14] MEDS: HEPARIN 5,000 UNITS/ML, 1ML SQ SCH ×3 (07:50→22:41)
[2019-08-14] MEDS: ONDANSETRON 2MG/ML, 2ML IVPush PRN (07:50)
[2019-08-14] MEDS ORDERED: HYDROmorphone 1 MG/ML, 1ML INJ IM ONE (08:00)
[2019-08-14] MEDS ORDERED: ENALAPRIL 10 MG TABLET ONE (08:01)
[2019-08-14] MEDS ORDERED: HYDROmorphone 2 MG/ML, 1ML ONE ×2 (08:02→08:15)
[2019-08-14] MEDS: SODIUM CHLORIDE 0.9% 1,000 ML IV SCH ×2 (08:08→14:40)
[2019-08-14] MEDS: ENALAPRIL 5MG TABLET PO SCH ×3 (08:08→21:41)
[2019-08-14 08:10] VITALS: BP 146/92
[2019-08-14] MEDS ORDERED: FAMOTIDINE 20 MG/2 ML IVPush ONE (09:00)
[2019-08-14 10:09] VITALS: BP 117/73
[2019-08-14 14:37] VITALS: BP 143/87
[2019-08-14] MEDS ORDERED: ACETAMINOPHEN 500 MG TABLET PO PRN (16:30)
[2019-08-14] MEDS: D5%-0.9% NACL 1,000 ML IV SCH ×2 (16:38→22:41)
[2019-08-14] MEDS: OXYcodone 5 MG/5 ML ORAL.SOL UDC PO PRN ×2 (16:39→22:40)
[2019-08-14 17:04] LABS: AMPHETAMINE SCREEN, URINE Negative (Negative); BARBITURATE SCREEN, URINE Negative (Negative); BENZODIAZEPINE SCREEN, URINE Negative (Negative); CANNABINOID SCREEN, URINE Positive (Negative); COCAINE SCREEN, URINE Negative (Negative); METHADONE SCREEN, URINE Negative (Negative); OPIATE SCREEN, URINE Positive (Negative)
[2019-08-14 19:37] VITALS: BP 154/95
[2019-08-14] MEDS: INSULIN GLARGINE 100 UNITS/ML, PEN SQ-INSULIN SCH (21:42)
[2019-08-15 01:03] VITALS: BP 113/73
[2019-08-15] MEDS: D5%-0.9% NACL 1,000 ML IV SCH (05:41)
[2019-08-15 05:46] LABS: BASOPHILS # (AUTO) 0.03 x10^3/uL (0-0.1); BASOPHILS % (AUTO) 1 % (0-1); EOSINOPHILS # (AUTO) 0.14 x10^3/uL (0-0.4); EOSINOPHILS % (AUTO) 3 % (1-7); LYMPHOCYTES % (AUTO) 38 % (22-44); MD NO; MEAN CORPUSCULAR HEMOGLOBIN 33.4 pg (27.5-34.5); MEAN CORPUSCULAR HGB CONC 32.8 g/dL (33.2-36.2); MEAN CORPUSCULAR VOLUME 101.8 fL (81-97); MEAN PLATELET VOLUME 9.3 fL (7.4-10.4); MONOCYTES # (AUTO) 0.82 x10^3/uL (0.2-0.8); MONOCYTES % (AUTO) 16 % (2-9); NEUTROPHILS # (AUTO) 2.33 x10^3/uL (1.8-6.8); NEUTROPHILS % (AUTO) 44 % (42-75); PLATELET COUNT 209 x10^3/uL (130-400); RED BLOOD COUNT 3.87 x10^6/uL (4.38-5.82)
[2019-08-15 05:57] LABS: ALBUMIN 2.6 g/dL (3.4-5.0); ANION GAP 9 mmol/L (5-15); CALCIUM 7.9 mg/dL (8.5-10.1); CHLORIDE 111 mmol/L (98-107)
[2019-08-15 06:00] LABS: ALANINE AMINOTRANSFERASE 10 U/L (12-78); ALKALINE PHOSPHATASE 50 U/L (45-117); BILIRUBIN,TOTAL 0.8 mg/dL (0.2-1.0); CREATININE 0.88 mg/dL (0.7-1.3); TOTAL PROTEIN 5.7 g/dL (6.4-8.2)
[2019-08-15] MEDS: SODIUM CHLORIDE FLUSH 10ML SYR IVF SCH (07:20)
[2019-08-15] MEDS: HEPARIN 5,000 UNITS/ML, 1ML SQ SCH (07:46)
[2019-08-15] MEDS: INSULIN LISPRO 100 UNITS/ML, PEN SQ-INSULIN SCH ×2 (07:46→11:00)
[2019-08-15] MEDS: ENALAPRIL 5MG TABLET PO SCH (07:47)
[2019-08-15 08:00] VITALS: BP 175/108
[2019-08-15] MEDS ORDERED: PANTOPRAZOLE 40 MG IV IVPush SCH (09:00)
[2019-08-15] MEDS: LABETALOL 5MG/ML, 20ML IVPush PRN (09:08)
[2019-08-15 09:27] VITALS: BP 160/94
[2019-08-15] MEDS ORDERED: ONDA-89 PO (10:23)
[2019-08-15] MEDS ORDERED: ENAL5TAB PO (10:28)
[2019-08-15] MEDS ORDERED: INSU100I13 SQ-INSULIN (10:28)
[2019-08-15] MEDS ORDERED: INSU100I11 SQ-INSULIN (10:28)
== END 2019-08-15 11:35 | disposition home or self-care (01) | DRG 391 ==
LOC: ED 21:57 → EDIP 22:57 → 3N 23:03 → DCLOUNGE 08-15 11:25
PROVIDERS: ADMIT Family Medicine; ATTEND Family Medicine
DX: A08.4 Viral intestinal infection, unspecified (principal); N17.0 Acute kidney failure with tubular necrosis; E11.10 Type 2 diabetes mellitus with ketoacidosis without coma; I10 Essential (primary) hypertension; E11.65 Type 2 diabetes mellitus with hyperglycemia; K21.9 Gastro-esophageal reflux disease without esophagitis; E83.52 Hypercalcemia; F17.200 Nicotine dependence, unspecified, uncomplicated; E86.0 Dehydration; Z66 Do not resuscitate; E87.6 Hypokalemia; F12.90 Cannabis use, unspecified, uncomplicated; E83.39 Other disorders of phosphorus metabolism; Z82.5 Family history of asthma and other chronic lower respiratory diseases; Z82.49 Family history of ischemic heart disease and other diseases of the circulatory system; Z83.3 Family history of diabetes mellitus; Z79.4 Long term (current) use of insulin; Z79.84 Long term (current) use of oral hypoglycemic drugs; Z79.899 Other long term (current) drug therapy; Z91.14 Patient's other noncompliance with medication regimen; Z59.0 Homelessness
CPT/HCPCS: 36415; 84145; 87400; 96372; 96374; 99291; J3490; J7042; 71045; 74176; 80048; 80053; 80307; 81001; 82010; 82800; 82962; 83036; 83605; 83690; 83735; 84100; 84681; 85025; 86341; 90686; 93005; G0378; J1170; J1644; J2405; J3480; C9113; J1815; J7030; J7040; J7050

== ENCOUNTER 2019-10-25 20:56 | Inpatient (IN) | payer MEDICAID ==
[~2019-10-25] VITALS: Ht 177.8 cm; Wt 72.0 kg
[~2019-10-25 20:56] MED LIST changes: +ONDA-89 PO
[2019-10-25] MEDS ORDERED: SODIUM CHLORIDE 0.9% 1,000ML IVBOLUS ONE ×2 (22:00→22:30)
[2019-10-25] MEDS ORDERED: ONDANSETRON 2MG/ML, 2ML IVPush ONE (22:00)
--- NOTE | 2019-10-25 22:05 | NUR ---
MULTIPLE ATTEMPTS FOR PIV BY THIS RN. TASK RN AT BEDSIDE FOR PIV PLACEMENT.
[2019-10-25 22:09] LABS: MEAN CORPUSCULAR HEMOGLOBIN 33.7 pg (27.5-34.5); MEAN CORPUSCULAR HGB CONC 32.4 g/dL (33.2-36.2); MEAN CORPUSCULAR VOLUME 104.1 fL (81-97); PLATELET COUNT 382 x10^3/uL (130-400); RED BLOOD COUNT 4.83 x10^6/uL (4.38-5.82); RED CELL DISTRIBUTION WIDTH 16.1 % (9.4-14.8)
--- NOTE | 2019-10-25 22:10 | NUR ---
REPORT GIVEN TO ALIRIO GREEN.
[2019-10-25] MEDS ORDERED: ONDANSETRON 2MG/ML, 2ML ONE ×2 (22:13→23:35)
--- NOTE | 2019-10-25 22:15 | NUR ---
PIV PLACED BY TASK RN. MEDS ADMIN PER AUG. IVF RUNNING. WARM BLANKET PROVIDED.
[2019-10-25 22:21] LABS: ALANINE AMINOTRANSFERASE 16 U/L (12-78); ALBUMIN 3.1 g/dL (3.4-5.0); ANION GAP 25 mmol/L (5-15); CALCIUM 10.3 mg/dL (8.5-10.1); CHLORIDE 90 mmol/L (98-107); CREATININE 1.97 mg/dL (0.7-1.3)
[2019-10-25 22:26] LABS: ALKALINE PHOSPHATASE 114 U/L (45-117); BILIRUBIN,TOTAL 0.8 mg/dL (0.2-1.0); TOTAL PROTEIN 8.2 g/dL (6.4-8.2); TROPONIN I < 0.015 ng/mL (0.000-0.045)
[2019-10-25 22:35] LABS: BASOPHILS # (AUTO) 0.06 x10^3/uL (0-0.1); BASOPHILS % (AUTO) 0 % (0-1); EOSINOPHILS # (AUTO) 0.01 x10^3/uL (0-0.4); EOSINOPHILS % (AUTO) 0 % (1-7); LYMPHOCYTES # (AUTO) 1.39 x10^3/uL (1-3.4); LYMPHOCYTES % (AUTO) 8 % (22-44); MD SCAN; MONOCYTES % (AUTO) 4 % (2-9); NEUTROPHILS # (AUTO) 14.62 x10^3/uL (1.8-6.8); NEUTROPHILS % (AUTO) 88 % (42-75)
[2019-10-25] MEDS ORDERED: SODIUM CHLORIDE 0.9% 1,000 ML IV ONE (22:45)
[2019-10-25] MEDS ORDERED: INSULIN SINGLE DOSE, ER ONE (22:54)
[2019-10-25 22:57] LABS: ACETONE, SERUM Large (80mg/dL) (Negative)
[2019-10-25] MEDS ORDERED: ONDANSETRON 2MG/ML, 2ML IVPush PRN (23:00)
[2019-10-25] MEDS ORDERED: INSULIN REGULAR 100 UNITS/ML, 3ML VIAL IVPush ONE (23:00)
[2019-10-25] MEDS ORDERED: REGULAR INSULIN 100 UNITS in SODIUM CHLORIDE 0.9% 99 ML IV PRN (23:01)
--- NOTE | 2019-10-25 23:16 | NUR ---
task rn: verified with primary rn magy 12 units reg insulin to be given per emar.
[2019-10-25 23:26] LABS: MICROSCOPIC AUTO
[2019-10-25] MEDS ORDERED: NS + 20MEQ KCL 1,000 ML IV SCH (23:38)
[2019-10-26] MEDS ORDERED: LABETALOL 5MG/ML, 20ML IVPush PRN
[2019-10-26] MEDS ORDERED: DEXTROSE 4 GM TAB.CHEW PO PRN
[2019-10-26] MEDS ORDERED: DEXTROSE 50%, 50ML SYRINGE IVPush PRN
[2019-10-26] MEDS ORDERED: ACETAMINOPHEN 500 MG TABLET PO PRN
[2019-10-26] MEDS ORDERED: ONDANSETRON 2MG/ML, 2ML IVPush ONE
[2019-10-26] MEDS ORDERED: ONDANSETRON 2MG/ML, 2ML IVPush PRN
[2019-10-26] MEDS ORDERED: GLUCAGON 1 MG IM PRN
--- NOTE | 2019-10-26 00:02 | NUR ---
REPORT CALLED TO MO ON ICU.
[2019-10-26] MEDS ORDERED: MORPHINE SULFATE 4 MG/ML, 1ML IV PRN (00:30)
[2019-10-26] MEDS ORDERED: REGULAR INSULIN 100 UNITS in SODIUM CHLORIDE 0.9% 99 ML IV PRN ×2 (01:00)
[2019-10-26] MEDS: FAMOTIDINE 20 MG/2 ML IVPush SCH ×3 (01:03→21:24)
[2019-10-26] MEDS: HEPARIN 5,000 UNITS/ML, 1ML SQ SCH ×3 (01:03→17:08)
[2019-10-26 01:17] LABS: ANION GAP 17 mmol/L (5-15); CALCIUM 7.3 mg/dL (8.5-10.1); CHLORIDE 114 mmol/L (98-107); CREATININE 1.25 mg/dL (0.7-1.3)
[2019-10-26] MEDS: D5%-0.45NACL+KCL 20MEQ 1,000 ML IV SCH ×3 (02:40→11:01)
[2019-10-26 04:00] VITALS: BP 93/52
[2019-10-26 04:29] LABS: BASOPHILS # (AUTO) 0.04 x10^3/uL (0-0.1); BASOPHILS % (AUTO) 0 % (0-1); EOSINOPHILS # (AUTO) 0.05 x10^3/uL (0-0.4); EOSINOPHILS % (AUTO) 0 % (1-7); LYMPHOCYTES # (AUTO) 1.82 x10^3/uL (1-3.4); LYMPHOCYTES % (AUTO) 13 % (22-44); MD NO; MEAN CORPUSCULAR HEMOGLOBIN 34.3 pg (27.5-34.5); MEAN CORPUSCULAR HGB CONC 33.5 g/dL (33.2-36.2); MEAN CORPUSCULAR VOLUME 102.5 fL (81-97); MEAN PLATELET VOLUME 9.3 fL (7.4-10.4); MONOCYTES # (AUTO) 1.13 x10^3/uL (0.2-0.8); MONOCYTES % (AUTO) 8 % (2-9); NEUTROPHILS # (AUTO) 10.97 x10^3/uL (1.8-6.8); NEUTROPHILS % (AUTO) 78 % (42-75); PLATELET COUNT 372 x10^3/uL (130-400); RED BLOOD COUNT 4.26 x10^6/uL (4.38-5.82)
[2019-10-26 04:41] LABS: ALBUMIN 2.6 g/dL (3.4-5.0); ANION GAP 7 mmol/L (5-15); CHLORIDE 104 mmol/L (98-107)
[2019-10-26 04:53] LABS: ALANINE AMINOTRANSFERASE 14 U/L (12-78); ALKALINE PHOSPHATASE 87 U/L (45-117); BILIRUBIN,TOTAL 0.5 mg/dL (0.2-1.0); CREATININE 1.78 mg/dL (0.7-1.3); TOTAL PROTEIN 6.7 g/dL (6.4-8.2)
[2019-10-26 09:07] LABS: ANION GAP 5 mmol/L (5-15); CALCIUM 9.1 mg/dL (8.5-10.1); CHLORIDE 105 mmol/L (98-107); CREATININE 1.74 mg/dL (0.7-1.3)
[2019-10-26] MEDS: FOLIC ACID 1 MG TABLET PO SCH (09:59)
[2019-10-26] MEDS: SODIUM CHLORIDE FLUSH 10ML SYR IVF SCH ×2 (10:00→21:25)
[2019-10-26] MEDS ORDERED: INSULIN GLARGINE 100 UNITS/ML, PEN SQ-INSULIN SCH (10:30)
[2019-10-26] MEDS: INSULIN LISPRO 100 UNITS/ML, PEN SQ-INSULIN SCH ×2 (17:07→21:25)
[2019-10-26 18:36] VITALS: BP 151/94
[2019-10-26] MEDS ORDERED: INSULIN GLARGINE 100 UNITS/ML, PEN SQ-INSULIN ONE (21:15)
[2019-10-26 21:22] LABS: CHLORIDE 102 mmol/L (98-107)
[2019-10-26 21:23] LABS: ANION GAP 5 mmol/L (5-15); CALCIUM 8.3 mg/dL (8.5-10.1); CREATININE 1.32 mg/dL (0.7-1.3)
[2019-10-27 01:33] VITALS: BP 160/96
[2019-10-27 05:21] LABS: ANION GAP 7 mmol/L (5-15); CALCIUM 8.5 mg/dL (8.5-10.1); CHLORIDE 101 mmol/L (98-107); CREATININE 1.22 mg/dL (0.7-1.3)
[2019-10-27 07:09] VITALS: BP 197/120
[2019-10-27 07:30] VITALS: BP 196/110
[2019-10-27] MEDS: FOLIC ACID 1 MG TABLET PO SCH (07:37)
[2019-10-27] MEDS: FAMOTIDINE 20 MG/2 ML IVPush SCH (07:38)
[2019-10-27] MEDS: HEPARIN 5,000 UNITS/ML, 1ML SQ SCH ×4 (07:38→23:27)
[2019-10-27] MEDS: SODIUM CHLORIDE FLUSH 10ML SYR IVF SCH ×2 (07:38→20:16)
[2019-10-27] MEDS: INSULIN LISPRO 100 UNITS/ML, PEN SQ-INSULIN SCH ×4 (07:39→20:16)
[2019-10-27 08:47] VITALS: BP 156/87
[2019-10-27] MEDS ORDERED: hydrALAzine 20 MG/ML, 1ML IV PRN (09:00)
[2019-10-27] MEDS ORDERED: ENALAPRIL 5MG TABLET PO SCH (11:00)
[2019-10-27] MEDS ORDERED: CALCIUM CARBONATE 500 MG TAB.CHEW PO PRN (13:00)
[2019-10-27 14:31] VITALS: BP 159/101
[2019-10-27] MEDS ORDERED: INSULIN GLARGINE 100 UNITS/ML, PEN SQ-INSULIN ONE (15:00)
[2019-10-27 18:22] VITALS: BP 135/77
[2019-10-27] MEDS: FAMOTIDINE 20 MG TABLET PO SCH (20:16)
[2019-10-28 00:52] VITALS: BP 121/86
[2019-10-28] MEDS: ENALAPRIL 5MG TABLET PO SCH ×2 (04:40→11:02)
[2019-10-28 04:41] VITALS: BP 162/85
[2019-10-28 05:44] LABS: CHLORIDE 104 mmol/L (98-107)
[2019-10-28 05:56] LABS: ANION GAP 6 mmol/L (5-15); CALCIUM 8.6 mg/dL (8.5-10.1); CREATININE 0.97 mg/dL (0.7-1.3)
[2019-10-28] MEDS ORDERED: POTASSIUM CHLORIDE 20 MEQ TAB.ER.PRT PO ONE (06:30)
[2019-10-28 06:51] VITALS: BP 178/93
[2019-10-28] MEDS: HEPARIN 5,000 UNITS/ML, 1ML SQ SCH (07:52)
[2019-10-28] MEDS: FOLIC ACID 1 MG TABLET PO SCH (07:56)
[2019-10-28] MEDS: INSULIN LISPRO 100 UNITS/ML, PEN SQ-INSULIN SCH ×2 (07:57→11:09)
[2019-10-28] MEDS: FAMOTIDINE 20 MG TABLET PO SCH (08:01)
[2019-10-28] MEDS: SODIUM CHLORIDE FLUSH 10ML SYR IVF SCH (08:01)
[2019-10-28] MEDS ORDERED: INSU100I11 SQ-INSULIN (10:50)
[2019-10-28 12:37] VITALS: BP 160/100
== END 2019-10-28 13:30 | disposition home or self-care (01) | DRG 637 ==
LOC: ED 22:48 → UNDOADMIN 22:53 → EDIP 22:53 → CCU 10-26 00:18 → 3N 10-26 14:47
PROVIDERS: ADMIT Internal Medicine; ATTEND Internal Medicine
DX: E10.10 Type 1 diabetes mellitus with ketoacidosis without coma (principal); N17.0 Acute kidney failure with tubular necrosis; D75.89 Other specified diseases of blood and blood-forming organs; E86.0 Dehydration; E87.8 Other disorders of electrolyte and fluid balance, not elsewhere classified; F17.200 Nicotine dependence, unspecified, uncomplicated; I10 Essential (primary) hypertension; Z83.3 Family history of diabetes mellitus; Z83.6 Family history of other diseases of the respiratory system; Z82.49 Family history of ischemic heart disease and other diseases of the circulatory system; Z59.0 Homelessness; Z91.19 Patient's noncompliance with other medical treatment and regimen
CPT/HCPCS: 36415; 84145; 96374; 96375; 99285; J3490; 71046; 80048; 80053; 80307; 81001; 82010; 82962; 83605; 83690; 83735; 84100; 84443; 84484; 85025; 86337; 87081; G0378; J1644; J1815; J2405; J3480; J2270; J7030

== ENCOUNTER 2019-12-20 09:02 | Inpatient (IN) | payer MEDICAID ==
[~2019-12-20] VITALS: Ht 177.8 cm; Wt 74.9 kg
[2019-12-20] MEDS ORDERED: ONDANSETRON 2MG/ML, 2ML IVPush ONE (09:30)
[2019-12-20] MEDS ORDERED: SODIUM CHLORIDE 0.9% 1,000ML IVBOLUS ONE ×2 (09:30→11:30)
[2019-12-20] MEDS ORDERED: FAMOTIDINE 20 MG/2 ML IV ONE (09:30)
[2019-12-20] MEDS ORDERED: FAMOTIDINE 20 MG/2 ML ONE (09:45)
[2019-12-20] MEDS ORDERED: ONDANSETRON 2MG/ML, 2ML ONE (09:45)
[2019-12-20] MEDS ORDERED: MORPHINE SULFATE 4 MG/ML, 1ML ONE (09:45)
[2019-12-20] MEDS: MORPHINE SULFATE 4 MG/ML, 1ML IVPush PRN ×2 (09:52→13:59)
[2019-12-20 10:02] LABS: BASOPHILS # (AUTO) 0.01 x10^3/uL (0-0.1); BASOPHILS % (AUTO) 0 % (0-1); EOSINOPHILS # (AUTO) 0.01 x10^3/uL (0-0.4); EOSINOPHILS % (AUTO) 0 % (1-7); LYMPHOCYTES # (AUTO) 1.05 x10^3/uL (1-3.4); LYMPHOCYTES % (AUTO) 9 % (22-44); MD NO; MEAN CORPUSCULAR HEMOGLOBIN 34.9 pg (27.5-34.5); MEAN CORPUSCULAR HGB CONC 32.9 g/dL (33.2-36.2); MEAN CORPUSCULAR VOLUME 106.3 fL (81-97); MONOCYTES # (AUTO) 0.86 x10^3/uL (0.2-0.8); MONOCYTES % (AUTO) 7 % (2-9); NEUTROPHILS # (AUTO) 10.13 x10^3/uL (1.8-6.8); NEUTROPHILS % (AUTO) 84 % (42-75); PLATELET COUNT 255 x10^3/uL (130-400); RED BLOOD COUNT 4.65 x10^6/uL (4.38-5.82); RED CELL DISTRIBUTION WIDTH 17.2 % (9.4-14.8)
[2019-12-20 10:04] LABS: PH, VENOUS 7.394 pH (7.320-7.420)
[2019-12-20 10:05] LABS: FIO2 RA %
[2019-12-20 10:17] LABS: ALANINE AMINOTRANSFERASE 23 U/L (12-78); ALBUMIN 3.8 g/dL (3.4-5.0); ANION GAP 20 mmol/L (5-15); CALCIUM 9.7 mg/dL (8.5-10.1); CHLORIDE 92 mmol/L (98-107); CREATININE 1.92 mg/dL (0.7-1.3)
[2019-12-20 10:19] LABS: ALKALINE PHOSPHATASE 126 U/L (45-117); BILIRUBIN,TOTAL 2.1 mg/dL (0.2-1.0); TOTAL PROTEIN 8.5 g/dL (6.4-8.2)
[2019-12-20] MEDS ORDERED: INSULIN REGULAR 100 UNITS/ML, 3ML VIAL IVPush ONE (11:00)
[2019-12-20] MEDS ORDERED: INSULIN SINGLE DOSE, ER ONE (11:03)
[2019-12-20 11:05] LABS: MICROSCOPIC AUTO
[2019-12-20 11:15] LABS: ACETONE, SERUM Large (80mg/dL) (Negative)
[2019-12-20] MEDS ORDERED: SODIUM CHLORIDE FLUSH 10ML SYR IVF PRN (12:30)
[2019-12-20 13:39] VITALS: BP 152/98
[2019-12-20] MEDS ORDERED: MULT-717 PO (13:49)
[2019-12-20] MEDS ORDERED: DOCUSATE 100 MG CAPSULE PO PRN (14:00)
[2019-12-20] MEDS ORDERED: POLYETHYLENE GLYCOL 17 GM PACKET PO PRN (14:00)
[2019-12-20] MEDS ORDERED: ACETAMINOPHEN 325 MG TABLET PO PRN (14:00)
[2019-12-20] MEDS ORDERED: BISACODYL 10 MG SUPP PR PRN (14:00)
[2019-12-20 15:07] VITALS: BP 152/98
[2019-12-20] MEDS: ONDANSETRON 2MG/ML, 2ML IVPush PRN (15:59)
[2019-12-20] MEDS: HEPARIN 5,000 UNITS/ML, 1ML SQ SCH (15:59)
[2019-12-20] MEDS: NICOTINE 14MG/24 HR PATCH.TD24 TD SCH (16:00)
[2019-12-20 16:04] LABS: ANION GAP 7 mmol/L (5-15); CALCIUM 8.4 mg/dL (8.5-10.1); CHLORIDE 103 mmol/L (98-107); CREATININE 1.66 mg/dL (0.7-1.3)
[2019-12-20] MEDS ORDERED: METOCLOPRAMIDE 5 MG/ML, 2ML IVPush PRN (16:30)
[2019-12-20] MEDS: POTASSIUM CHLORIDE 10 MEQ in SODIUM CHLORIDE 0.9% 1,000 ML IV SCH (16:59)
[2019-12-20] MEDS: INSULIN REGULAR 100 UNITS/ML, 3ML VIAL SQ-INSULIN SCH ×2 (16:59→21:28)
[2019-12-20 18:46] VITALS: BP 122/79
[2019-12-20] MEDS: INSULIN GLARGINE 100 UNITS/ML, PEN SQ-INSULIN SCH (21:29)
[2019-12-20] MEDS: MELATONIN 5 MG TABLET PO PRN (22:06)
[2019-12-21] VITALS (10 sets, daily range): BP systolic 117–169; BP diastolic 79–113
[2019-12-21] MEDS: HEPARIN 5,000 UNITS/ML, 1ML SQ SCH ×3 (01:00→15:59)
[2019-12-21 05:35] LABS: ALANINE AMINOTRANSFERASE 16 U/L (12-78); ALBUMIN 3.1 g/dL (3.4-5.0); ANION GAP 4 mmol/L (5-15); CHLORIDE 104 mmol/L (98-107); CREATININE 1.23 mg/dL (0.7-1.3)
[2019-12-21 05:37] LABS: ALKALINE PHOSPHATASE 85 U/L (45-117); BILIRUBIN,TOTAL 0.9 mg/dL (0.2-1.0); TOTAL PROTEIN 6.5 g/dL (6.4-8.2)
[2019-12-21 05:50] LABS: MEAN CORPUSCULAR HEMOGLOBIN 35.1 pg (27.5-34.5); MEAN CORPUSCULAR HGB CONC 32.7 g/dL (33.2-36.2); MEAN CORPUSCULAR VOLUME 107.2 fL (81-97); MEAN PLATELET VOLUME 9.4 fL (7.4-10.4); PLATELET COUNT 228 x10^3/uL (130-400); RED BLOOD COUNT 3.79 x10^6/uL (4.38-5.82); RED CELL DISTRIBUTION WIDTH 17.5 % (9.4-14.8)
[2019-12-21] MEDS: POTASSIUM CHLORIDE 10 MEQ in SODIUM CHLORIDE 0.9% 1,000 ML IV SCH (06:01)
[2019-12-21 06:17] LABS: BASOPHILS # (AUTO) 0.01 x10^3/uL (0-0.1); BASOPHILS % (AUTO) 0 % (0-1); EOSINOPHILS # (AUTO) 0.19 x10^3/uL (0-0.4); EOSINOPHILS % (AUTO) 2 % (1-7); LYMPHOCYTES # (AUTO) 2.03 x10^3/uL (1-3.4); LYMPHOCYTES % (AUTO) 19 % (22-44); MD SCAN; MONOCYTES # (AUTO) 1.14 x10^3/uL (0.2-0.8); MONOCYTES % (AUTO) 11 % (2-9); NEUTROPHILS # (AUTO) 7.31 x10^3/uL (1.8-6.8); NEUTROPHILS % (AUTO) 69 % (42-75)
[2019-12-21] MEDS: INSULIN REGULAR 100 UNITS/ML, 3ML VIAL SQ-INSULIN SCH ×4 (07:00→20:33)
[2019-12-21] MEDS ORDERED: PANTOPRAZOLE 20MG TABLET ONE (07:37)
[2019-12-21] MEDS ORDERED: PANTOPRAZOLE 40MG TABLET ONE (07:37)
[2019-12-21] MEDS: FOLIC ACID 1 MG TABLET PO SCH (07:50)
[2019-12-21] MEDS: hydrALAzine 20 MG/ML, 1ML IVPush PRN ×3 (07:50→20:25)
[2019-12-21] MEDS: PANTOPRAZOLE 20MG TABLET PO SCH (07:50)
[2019-12-21] MEDS: POTASSIUM CHLORIDE 20 MEQ in LACTATED RINGERS 1,000 ML IV SCH ×2 (15:00→23:21)
[2019-12-21] MEDS: NICOTINE 14MG/24 HR PATCH.TD24 TD SCH (15:59)
[2019-12-21] MEDS: ENALAPRIL 5MG TABLET PO SCH (19:21)
[2019-12-21] MEDS: INSULIN GLARGINE 100 UNITS/ML, PEN SQ-INSULIN SCH (20:33)
[2019-12-21] MEDS ORDERED: NALOXONE 0.4 MG/ML, 1ML ONE (22:23)
[2019-12-21] MEDS ORDERED: NALOXONE 0.4 MG/ML, 1ML IVPush PRN (22:30)
[2019-12-21 22:46] LABS: O2 FLOW ROOM AIR L/min
[2019-12-21 23:02] LABS: ANION GAP 13 mmol/L (5-15); CALCIUM 7.9 mg/dL (8.5-10.1); CHLORIDE 102 mmol/L (98-107); CREATININE 1.12 mg/dL (0.7-1.3)
[2019-12-22] VITALS (9 sets, daily range): BP systolic 117–172; BP diastolic 71–111
[2019-12-22] MEDS ORDERED: POTASSIUM CHLORIDE 20 MEQ TAB.ER.PRT PO ONE (00:30)
[2019-12-22] MEDS ORDERED: MAGNESIUM SULFATE PMX 4GM/100M 100 ML IV ONE (00:30)
[2019-12-22] MEDS: HEPARIN 5,000 UNITS/ML, 1ML SQ SCH ×3 (01:18→16:16)
[2019-12-22 06:06] LABS: BASOPHILS # (AUTO) 0.13 x10^3/uL (0-0.1); BASOPHILS % (AUTO) 1 % (0-1); EOSINOPHILS % (AUTO) 3 % (1-7); LYMPHOCYTES # (AUTO) 1.65 x10^3/uL (1-3.4); LYMPHOCYTES % (AUTO) 17 % (22-44); MD NO; MEAN CORPUSCULAR HEMOGLOBIN 34.7 pg (27.5-34.5); MEAN CORPUSCULAR HGB CONC 32.4 g/dL (33.2-36.2); MEAN CORPUSCULAR VOLUME 107.1 fL (81-97); MEAN PLATELET VOLUME 9.3 fL (7.4-10.4); MONOCYTES # (AUTO) 1.04 x10^3/uL (0.2-0.8); MONOCYTES % (AUTO) 11 % (2-9); NEUTROPHILS # (AUTO) 6.79 x10^3/uL (1.8-6.8); NEUTROPHILS % (AUTO) 69 % (42-75); PLATELET COUNT 221 x10^3/uL (130-400); RED BLOOD COUNT 3.96 x10^6/uL (4.38-5.82); RED CELL DISTRIBUTION WIDTH 17.2 % (9.4-14.8)
[2019-12-22] MEDS: PANTOPRAZOLE 20MG TABLET PO SCH (06:16)
[2019-12-22] MEDS: POTASSIUM CHLORIDE 20 MEQ in LACTATED RINGERS 1,000 ML IV SCH ×3 (06:16→23:45)
[2019-12-22 06:52] LABS: CHLORIDE 103 mmol/L (98-107)
[2019-12-22] MEDS: INSULIN REGULAR 100 UNITS/ML, 3ML VIAL SQ-INSULIN SCH ×4 (07:00→20:47)
[2019-12-22 07:11] LABS: ANION GAP 6 mmol/L (5-15); CALCIUM 8.2 mg/dL (8.5-10.1); CREATININE 0.85 mg/dL (0.7-1.3)
[2019-12-22 07:12] LABS: ALANINE AMINOTRANSFERASE 16 U/L (12-78); ALBUMIN 2.8 g/dL (3.4-5.0); ALKALINE PHOSPHATASE 76 U/L (45-117); BILIRUBIN,TOTAL 0.9 mg/dL (0.2-1.0); CHOL/HDL RATIO 3.6; CHOLESTEROL, TOTAL 163 mg/dL (140-239); HDL CHOL % 28 % (26-37); HDL CHOLESTEROL (DIRECT) 45 mg/dL (40-60); LDL CHOLESTEROL,CALCULATED 83 mg/dL (54-169); LDL/HDL RATIO 1.8 (0.5-3.0); TOTAL PROTEIN 6.5 g/dL (6.4-8.2); TRIGLYCERIDES 175 mg/dL (50-200); VLDL CHOLESTEROL 35 mg/dL (0-25)
[2019-12-22] MEDS: ENALAPRIL 5MG TABLET PO SCH ×2 (08:37→20:46)
[2019-12-22] MEDS: FOLIC ACID 1 MG TABLET PO SCH (08:37)
[2019-12-22] MEDS: ONDANSETRON 2MG/ML, 2ML IVPush PRN (09:11)
[2019-12-22] MEDS ORDERED: HYDROmorphone 2 MG/ML, 1ML IVPush PRN ×2 (11:00)
[2019-12-22] MEDS ORDERED: HYDROcodone/APAP 5/325 TABLET PO PRN (11:00)
[2019-12-22] MEDS: HYDROcodone/APAP 5/325 TABLET PO PRN ×3 (14:02→22:06)
[2019-12-22] MEDS: NICOTINE 14MG/24 HR PATCH.TD24 TD SCH (14:38)
[2019-12-22] MEDS: hydrALAzine 20 MG/ML, 1ML IVPush PRN (18:35)
[2019-12-22] MEDS: INSULIN GLARGINE 100 UNITS/ML, PEN SQ-INSULIN SCH (20:48)
[2019-12-22] MEDS: MELATONIN 5 MG TABLET PO PRN (22:05)
[2019-12-23] VITALS: BP 127/78
[2019-12-23] MEDS: HEPARIN 5,000 UNITS/ML, 1ML SQ SCH ×2 (01:30→08:10)
[2019-12-23 05:07] LABS: ANION GAP 4 mmol/L (5-15); CHLORIDE 106 mmol/L (98-107)
[2019-12-23 05:09] LABS: CREATININE 0.87 mg/dL (0.7-1.3)
[2019-12-23] MEDS: PANTOPRAZOLE 20MG TABLET PO SCH (05:09)
[2019-12-23] MEDS: HYDROcodone/APAP 5/325 TABLET PO PRN ×2 (05:09→09:33)
[2019-12-23 07:22] VITALS: BP 173/100
[2019-12-23] MEDS: ENALAPRIL 5MG TABLET PO SCH (08:08)
[2019-12-23] MEDS: FOLIC ACID 1 MG TABLET PO SCH (08:08)
[2019-12-23] MEDS: INSULIN REGULAR 100 UNITS/ML, 3ML VIAL SQ-INSULIN SCH ×2 (08:10→12:22)
[2019-12-23] MEDS: POTASSIUM CHLORIDE 20 MEQ in LACTATED RINGERS 1,000 ML IV SCH (10:19)
[2019-12-23 13:26] VITALS: BP 158/94
== END 2019-12-23 13:55 | disposition home or self-care (01) | DRG 438 ==
LOC: ED 09:20 → EDIP 12:16 → 3WST 13:20 → 5SO 12-21 23:53 → 4EST 12-22 09:30 → DCLOUNGE 12-23 13:44
PROVIDERS: ADMIT Family Medicine; ATTEND Family Medicine
DX: K85.90 Acute pancreatitis without necrosis or infection, unspecified (principal); N17.0 Acute kidney failure with tubular necrosis; E87.1 Hypo-osmolality and hyponatremia; E11.65 Type 2 diabetes mellitus with hyperglycemia; E11.42 Type 2 diabetes mellitus with diabetic polyneuropathy; Z91.19 Patient's noncompliance with other medical treatment and regimen; Z79.4 Long term (current) use of insulin; K83.8 Other specified diseases of biliary tract; I10 Essential (primary) hypertension; F17.200 Nicotine dependence, unspecified, uncomplicated; E87.8 Other disorders of electrolyte and fluid balance, not elsewhere classified; E86.0 Dehydration; E11.621 Type 2 diabetes mellitus with foot ulcer; L97.509 Non-pressure chronic ulcer of other part of unspecified foot with unspecified severity; J44.9 Chronic obstructive pulmonary disease, unspecified
CPT/HCPCS: 36415; 36600; 74181; 76705; 80048; 80053; 80061; 81001; 82010; 82803; 82962; 83036; 83605; 83690; 83735; 84100; 85025; 93005; G0378; J1644; J1815; J2310; J2405; J3480; J0360; J2270; J2765; J3475; J3490; J7030; J7120

== ENCOUNTER 2020-10-23 19:49 | Inpatient (IN) | payer MEDICAID ==
[~2020-10-23] VITALS: Ht 177.8 cm; Wt 77.8 kg
[~2020-10-23 19:49] MED LIST changes: -ENAL5TAB PO; +ENAL5TAB10 PO; -FOLI-17 PO; +FOLI1TAB32 PO; +MULT-717 PO; -PANT40TA5 PO; +PANT40TA6 PO
--- NOTE | 2020-10-23 20:02 | NUR ---
patient arrives with pain left ribs that began two weeks ago - tripped and fell onto side of boat.
[2020-10-23] MEDS ORDERED: MORPHINE SULFATE 4 MG/ML, 1ML IVPush ONE (21:00)
[2020-10-23] MEDS ORDERED: SODIUM CHLORIDE 0.9% 1,000ML IVBOLUS ONE ×2 (21:00→21:30)
[2020-10-23] MEDS ORDERED: MORPHINE SULFATE 4 MG/ML, 1ML ONE (21:03)
--- NOTE | 2020-10-23 21:06 | NUR ---
fluids given, medicated, in bed, rails up
[2020-10-23 21:07] LABS: BASOPHILS % (AUTO) 1 % (0-1); EOSINOPHILS % (AUTO) 1 % (1-7); LYMPHOCYTES % (AUTO) 8 % (22-44); MEAN CORPUSCULAR HGB CONC 34.4 g/dL (33.2-36.2); MONOCYTES % (AUTO) 15 % (2-9); NEUTROPHILS % (AUTO) 76 % (42-75); PH, VENOUS 7.433 pH (7.320-7.420); PLATELET COUNT 287 x10^3/uL (130-400); RED BLOOD COUNT 3.94 x10^6/uL (4.38-5.82); RED CELL DISTRIBUTION WIDTH 14.9 % (9.4-14.8)
[2020-10-23 21:08] LABS: O2 FLOW ROOM AIR L/min
[2020-10-23 21:15] LABS: ACETONE, SERUM Large (80mg/dL) (Negative)
[2020-10-23 21:20] LABS: ALANINE AMINOTRANSFERASE 11 U/L (12-78); ALBUMIN 2.3 g/dL (3.4-5.0); ANION GAP 10 mmol/L (5-15); CALCIUM 9.3 mg/dL (8.5-10.1); CHLORIDE 94 mmol/L (98-107); CREATININE 1.73 mg/dL (0.7-1.3)
[2020-10-23 21:22] LABS: ALKALINE PHOSPHATASE 117 U/L (45-117); BILIRUBIN,TOTAL 0.7 mg/dL (0.2-1.0); TOTAL PROTEIN 7.9 g/dL (6.4-8.2)
[2020-10-23] MEDS ORDERED: PIPERACILLIN/TAZO 4.5 GM in DEXTROSE 5% 100 ML IVPB ONE (21:30)
[2020-10-23] MEDS ORDERED: VANCOMYCIN 1,600 MG in SODIUM CHLORIDE 0.9% 250 ML IV ONE (21:30)
[2020-10-23] MEDS ORDERED: VANCOMYCIN PER PHARMACY MC ONE (21:30)
[2020-10-23 21:42] LABS: MD SCAN
[2020-10-23] MEDS ORDERED: ACETAMINOPHEN 500 MG TABLET ONE (21:42)
[2020-10-23] MEDS ORDERED: ACETAMINOPHEN 325 MG TABLET PO PRN (22:00)
[2020-10-23] MEDS ORDERED: ONDANSETRON ODT 4 MG PO PRN (22:00)
[2020-10-23] MEDS ORDERED: BISACODYL 10 MG SUPP PR PRN (22:00)
[2020-10-23] MEDS ORDERED: POLYETHYLENE GLYCOL 17 GM PACKET PO PRN (22:00)
[2020-10-23] MEDS ORDERED: VANCOMYCIN PER PHARMACY MC PRN (22:00)
[2020-10-23] MEDS ORDERED: ACETAMINOPHEN 500 MG TABLET PO ONE (22:00)
[2020-10-23] MEDS ORDERED: INSULIN LISPRO 100 UNITS/ML, PEN SQ-INSULIN SCH (22:00)
[2020-10-23] MEDS ORDERED: PHARMACOKINETIC CONSULTATION MC ONE (22:30)
[2020-10-23] MEDS ORDERED: PHARMACOKINETIC MONITORING MC PRN (22:30)
[2020-10-23] MEDS: SODIUM CHLORIDE 0.9% 1,000 ML IV SCH (23:02)
[2020-10-23] MEDS: HEPARIN 5,000 UNITS/ML, 1ML SQ SCH (23:37)
[2020-10-23] MEDS: OXYcodone IR 5MG TABLET PO PRN (23:37)
[2020-10-23 23:55] VITALS: BP 146/87
[2020-10-24] MEDS: INSULIN GLARGINE 100 UNITS/ML, PEN SQ-INSULIN SCH ×2 (00:01→21:29)
[2020-10-24] MEDS: INSULIN LISPRO 100 UNITS/ML, PEN LOW DOSE SS SQ-INSULIN SCH ×5 (00:02→20:53)
[2020-10-24 00:30] LABS: MICROSCOPIC INDICATED
[2020-10-24 00:40] LABS: CHLORIDE,URINE RANDOM 19 mmol/L; POTASSIUM,URINE RANDOM 21 mmol/L; SODIUM,URINE RANDOM 21 mmol/L
[2020-10-24] MEDS: PIPERACILLIN/TAZO 3.375 GM in DEXTROSE 5% 50 ML IV SCH ×4 (03:45→21:28)
[2020-10-24] MEDS: OXYcodone IR 5MG TABLET PO PRN ×4 (03:49→21:39)
[2020-10-24 03:50] VITALS: BP 122/77
[2020-10-24 05:53] LABS: BASOPHILS % (AUTO) 1 % (0-1); EOSINOPHILS % (AUTO) 1 % (1-7); LYMPHOCYTES % (AUTO) 11 % (22-44); MEAN CORPUSCULAR HEMOGLOBIN 34.2 pg (27.5-34.5); MEAN CORPUSCULAR HGB CONC 33.4 g/dL (33.2-36.2); MEAN PLATELET VOLUME 10.2 fL (7.4-10.4); MONOCYTES % (AUTO) 15 % (2-9); NEUTROPHILS % (AUTO) 73 % (42-75); PLATELET COUNT 244 x10^3/uL (130-400); RED BLOOD COUNT 3.34 x10^6/uL (4.38-5.82); RED CELL DISTRIBUTION WIDTH 14.8 % (9.4-14.8)
[2020-10-24 06:01] LABS: CHLORIDE 103 mmol/L (98-107)
[2020-10-24 06:06] LABS: ANION GAP 8 mmol/L (5-15); CALCIUM 8.1 mg/dL (8.5-10.1); CREATININE 1.67 mg/dL (0.7-1.3)
[2020-10-24 06:17] LABS: MD SCAN
[2020-10-24 06:54] VITALS: BP 151/95
[2020-10-24] MEDS: HEPARIN 5,000 UNITS/ML, 1ML SQ SCH ×3 (07:38→23:42)
[2020-10-24] MEDS: SODIUM CHLORIDE 0.9% 1,000 ML IV SCH ×2 (07:53→15:44)
[2020-10-24] MEDS: MULTIVITAMIN 1 TABLET PO SCH (07:53)
[2020-10-24] MEDS: SENNA/DOCUSATE TABLET PO SCH (07:53)
[2020-10-24] MEDS: VANCOMYCIN 1,400 MG in SODIUM CHLORIDE 0.9% 250 ML IV SCH (09:38)
[2020-10-24 12:50] LABS: HCT (SEDRATE) 39.7 % (39.2-51.8)
[2020-10-24 14:23] VITALS: BP 136/86
[2020-10-24] MEDS ORDERED: LORazepam 2 MG/ML, 1ML IVPush ONE (15:00)
[2020-10-24] MEDS ORDERED: GADOTERATE 7.5 MMOL/15ML SYR ONE (15:25)
[2020-10-24] MEDS ORDERED: LORazepam 2 MG/ML, 1ML IV PRN ×5 (15:30)
[2020-10-24] MEDS ORDERED: FOLIC ACID 5 MG/ML IM ONE (15:30)
[2020-10-24] MEDS ORDERED: CHLORHEXIDINE 15 ML UDC ONE (15:39)
[2020-10-24] MEDS: CHLORDIAZEPOXIDE 10 MG CAPSULE PO SCH ×2 (16:00→21:27)
[2020-10-24] MEDS ORDERED: LABETALOL 5MG/ML, 20ML IV PRN (16:00)
[2020-10-24] MEDS ORDERED: FENTANYL PF 100 MCG/2ML IV PRN (16:00)
[2020-10-24] MEDS ORDERED: MEPERIDINE/PF 25MG/0.5ML IVPush PRN (16:00)
[2020-10-24] MEDS ORDERED: OXYcodone 5 MG/5 ML ORAL.SOL UDC PO PRN (16:00)
[2020-10-24] MEDS ORDERED: ONDANSETRON 2MG/ML, 2ML IVPush PRN (16:00)
[2020-10-24] MEDS ORDERED: CHLORHEXIDINE 15 ML UDC PO ONE (16:00)
[2020-10-24] MEDS ORDERED: LORazepam 2 MG/ML, 1ML IVPush PRN (16:00)
[2020-10-24] MEDS ORDERED: PROMETHAZINE 25 MG/ML, 1ML IVPush PRN (16:00)
[2020-10-24] MEDS ORDERED: EPHEDRINE 50 MG/ML, 1ML IVPush PRN (16:00)
[2020-10-24] MEDS ORDERED: ACETAMINOPHEN 325 MG TABLET PO PRN (16:00)
[2020-10-24] MEDS ORDERED: hydrALAzine 20 MG/ML, 1ML IV PRN (16:00)
[2020-10-24] MEDS ORDERED: METHOCARBAMOL 1,000 MG in DEXTROSE 5% 100 ML IV PRN (16:00)
[2020-10-24] MEDS: INSULIN LISPRO 100 UNITS/ML, PEN SQ-INSULIN SCH ×2 (16:00→20:53)
[2020-10-24] MEDS ORDERED: LACTATED RINGERS 1,000 ML IV SCH (16:00)
[2020-10-24] MEDS ORDERED: SUCCINYLCHOLINE 20 MG/ML, 10ML ONE (16:10)
[2020-10-24] MEDS ORDERED: ESMOLOL 100 MG/10 ML ONE (16:10)
[2020-10-24] MEDS ORDERED: ONDANSETRON 2MG/ML, 2ML ONE (16:10)
[2020-10-24] MEDS ORDERED: PROPOFOL 10 MG/ML, 20ML ONE (16:10)
[2020-10-24] MEDS ORDERED: HYDROmorphone 1 MG/ML, 1ML INJ ONE (17:11)
[2020-10-24] MEDS ORDERED: OXYcodone 5 MG/5 ML ORAL.SOL UDC ONE (17:13)
[2020-10-24] MEDS: HYDROmorphone 1 MG/ML, 1ML INJ IVPush PRN ×2 (17:20→17:30)
[2020-10-24 20:35] VITALS: BP 120/78
[2020-10-24] MEDS ORDERED: NICOTINE 21 MG/24 HR PATCH.TD24 ONE (22:02)
[2020-10-25] VITALS: BP 116/76
[2020-10-25] MEDS: PIPERACILLIN/TAZO 3.375 GM in DEXTROSE 5% 50 ML IV SCH ×3 (03:32→18:16)
[2020-10-25] MEDS: OXYcodone IR 5MG TABLET PO PRN ×5 (03:32→22:39)
[2020-10-25] MEDS: VANCOMYCIN 1,400 MG in SODIUM CHLORIDE 0.9% 250 ML IV SCH (04:02)
[2020-10-25] MEDS: CHLORDIAZEPOXIDE 10 MG CAPSULE PO SCH ×4 (05:01→20:42)
[2020-10-25 05:42] LABS: MEAN CORPUSCULAR HEMOGLOBIN 34.5 pg (27.5-34.5); MEAN CORPUSCULAR HGB CONC 33.4 g/dL (33.2-36.2); MEAN PLATELET VOLUME 9.5 fL (7.4-10.4); PLATELET COUNT 278 x10^3/uL (130-400); RED BLOOD COUNT 3.12 x10^6/uL (4.38-5.82)
[2020-10-25 05:57] LABS: ALBUMIN 1.7 g/dL (3.4-5.0); ANION GAP 8 mmol/L (5-15); CALCIUM 8.2 mg/dL (8.5-10.1); CHLORIDE 104 mmol/L (98-107)
[2020-10-25 06:01] LABS: ALANINE AMINOTRANSFERASE 7 U/L (12-78); ALKALINE PHOSPHATASE 88 U/L (45-117); BILIRUBIN,TOTAL 0.6 mg/dL (0.2-1.0); CREATININE 2.05 mg/dL (0.7-1.3)
[2020-10-25 06:16] LABS: MD YES
[2020-10-25 06:18] LABS: BAND#(MANUAL) 0.82 x10^3/uL; BANDS%(MANUAL) 4 % (0-7); EOS#(MANUAL) 0.21 x10^3/uL (0.0-0.4); EOS% (MANUAL) 1 % (1-7); LYMPH#(MANUAL) 0.82 x10^3/uL (1-3.4); LYMPHS% (MANUAL) 4 % (22-44); MONOS#(MANUAL) 1.03 x10^3/uL (0.3-2.7); MONOS% (MANUAL) 5 % (2-9); MYELOCYTES# (MANUAL) 0.41 x10^3/uL (0-0); MYELOCYTES% (MANUAL) 2 % (0-0); SEG#(MANUAL) 17.22 x10^3/uL (1.8-6.8); SEGS% (MANUAL) 84 % (42-75)
[2020-10-25 06:19] LABS: <PLATELET ESTIMATE> ADEQUATE; <PLT MORPHOLOGY> NORMAL PLT MORPH; ANISOCYTOSIS 1+
[2020-10-25] MEDS: INSULIN LISPRO 100 UNITS/ML, PEN SQ-INSULIN SCH ×4 (07:00→20:42)
[2020-10-25] MEDS: MULTIVITAMINS/MINERALS TABLET PO SCH ×2 (08:12→08:41)
[2020-10-25] MEDS ORDERED: SODIUM CHLORIDE 0.9% 1,000ML IVBOLUS ONE (08:30)
[2020-10-25 08:33] VITALS: BP 103/68
[2020-10-25] MEDS: HEPARIN 5,000 UNITS/ML, 1ML SQ SCH ×2 (08:40→16:38)
[2020-10-25] MEDS: SENNA/DOCUSATE TABLET PO SCH (08:40)
[2020-10-25] MEDS: MULTIVITAMIN 1 TABLET PO SCH (08:41)
[2020-10-25] MEDS ORDERED: THIAMINE 100 MG/ML, 2ML IM SCH (09:00)
[2020-10-25] MEDS ORDERED: NICOTINE 21 MG/24 HR PATCH.TD24 TD SCH (09:00)
[2020-10-25] MEDS: SODIUM CHLORIDE 0.9% 1,000 ML IV SCH ×2 (11:50→20:42)
[2020-10-25 13:03] VITALS: BP 132/81
[2020-10-25 20:13] VITALS: BP 146/90
[2020-10-25 20:50] VITALS: BP 149/84
[2020-10-25] MEDS ORDERED: INSULIN GLARGINE 100 UNITS/ML, PEN SQ-INSULIN SCH (21:00)
[2020-10-26] MEDS ORDERED: EPINEPHRINE SYRINGE 0.1 MG/ML, 10ML ONE ×2 (00:01→04:46)
[2020-10-26] MEDS: HEPARIN 5,000 UNITS/ML, 1ML SQ SCH (00:08)
[2020-10-26] MEDS: PIPERACILLIN/TAZO 3.375 GM in DEXTROSE 5% 50 ML IV SCH (00:08)
[2020-10-26 00:09] VITALS: BP 116/78
[2020-10-26] MEDS ORDERED: MAGNESIUM SULFATE 1 GM/2 ML ONE (04:46)
[2020-10-26] MEDS ORDERED: NALOXONE 1 MG/ML, 2ML ONE (04:46)
[2020-10-26] MEDS ORDERED: SODIUM BICARB 8.4%, 50ML SYRINGE ONE (04:46)
[2020-10-26] MEDS ORDERED: FLUMAZENIL 0.1 MG/1 ML, 5ML ONE (04:46)
[2020-10-26] MEDS ORDERED: CODE BLUE RESPONSE XX ONE (04:46)
== END 2020-10-26 10:32 | disposition expired | DRG 853 ==
LOC: ED 20:39 → EDIP 21:46 → 3N 22:24
PROVIDERS: ADMIT Family Medicine; ATTEND Internal Medicine
PROC: 0BH17EZ Insertion of Endotracheal Airway into Trachea, Via Natural or Artificial Opening (ICD-10-PCS; principal; 2020-10-23)
PROC: 5A12012 Performance of Cardiac Output, Single, Manual (ICD-10-PCS; 2020-10-23)
PROC: 5A1935Z Respiratory Ventilation, Less than 24 Consecutive Hours (ICD-10-PCS; 2020-10-23)
PROC: 0J9Q0ZZ Drainage of Right Foot Subcutaneous Tissue and Fascia, Open Approach (ICD-10-PCS; 2020-10-24)
DX: A41.9 Sepsis, unspecified organism (principal); N17.0 Acute kidney failure with tubular necrosis; E87.1 Hypo-osmolality and hyponatremia; L02.611 Cutaneous abscess of right foot; L02.612 Cutaneous abscess of left foot; L03.115 Cellulitis of right lower limb; M86.9 Osteomyelitis, unspecified; D53.9 Nutritional anemia, unspecified; Z20.822 Contact with and (suspected) exposure to COVID-19; D75.89 Other specified diseases of blood and blood-forming organs; E11.22 Type 2 diabetes mellitus with diabetic chronic kidney disease; E11.42 Type 2 diabetes mellitus with diabetic polyneuropathy; E11.621 Type 2 diabetes mellitus with foot ulcer; E11.649 Type 2 diabetes mellitus with hypoglycemia without coma; E11.65 Type 2 diabetes mellitus with hyperglycemia; E11.69 Type 2 diabetes mellitus with other specified complication; E88.89 Other specified metabolic disorders; F10.10 Alcohol abuse, uncomplicated; F17.210 Nicotine dependence, cigarettes, uncomplicated; I12.9 Hypertensive chronic kidney disease with stage 1 through stage 4 chronic kidney disease, or unspecified chronic kidney disease; I46.9 Cardiac arrest, cause unspecified; N18.9 Chronic kidney disease, unspecified; Z79.4 Long term (current) use of insulin; Z82.49 Family history of ischemic heart disease and other diseases of the circulatory system; Z83.3 Family history of diabetes mellitus; Z79.899 Other long term (current) drug therapy; Z79.891 Long term (current) use of opiate analgesic; Z79.01 Long term (current) use of anticoagulants; Z80.9 Family history of malignant neoplasm, unspecified
CPT/HCPCS: 36415; 71045; 80048; 80053; 80202; 81001; 82010; 82436; 82570; 82607; 82803; 82962; 83036; 83605; 84133; 84300; 85025; 85651; 86140; 87040; 87070; 87075; 87076; 87077; 87186; 87205; 87635; 88305; 92950; 93005; 96374; 99285; G0378; J1170; J1644; J2405; J2543; J2704; J3370; J3411; J3475; A9575; J0330; J1815; J2270; J2310; J7030; J7050; J7120